=== PATIENT | male | born 1985 | race Caucasian/White ===

== ENCOUNTER 2024-02-21 19:13 | Outpatient (REF) | payer SELFPAY ==
[2024-02-21 13:06] LABS: HCT 32.4 % (40.0-50.0); HGB 10.1 g/dL (13.5-17.5); MCH 24.3 pg (27.0-33.0); MCHC 31.2 % (32.0-36.0); MCV 78 fL (80-95); MPV 10.2 fL (8.0-11.0); Platelet Count 345 10^3/uL (130-400); RBC 4.16 10^6/uL (4.36-5.78); RDW 17.1 % (11.8-14.1); RDW-SD 48.7 fL; WBC 9.15 10^3/uL (4.4-10.8)
[2024-02-21 13:25] LABS: Anion Gap 10.2 mmol/L (3-11); BUN 17 mg/dL (7-18); C-Reactive Protein 10.27 mg/dL (<or=0.5); CO2 25.8 mmol/L (21.0-32.0); CREATININE 0.7 mg/dL (0.70-1.30); Calcium 8.9 mg/dL (8.5-10.1); Chloride 103 mmol/L (98-107); Estimated GFR 118.72 (mL/min/1.73m2); Glucose 114 mg/dL (74-106); Potassium 4.5 mmol/L (3.5-5.1); Sodium 139 mmol/L (136-145)
== END 2024-02-21 19:14 | disposition home or self-care (01) ==
LOC: LBN 19:13
PROVIDERS: Visit Provider Family Medicine
DX: E87.6 Hypokalemia (principal); M86.9 Osteomyelitis, unspecified; R78.81 Bacteremia; D62 Acute posthemorrhagic anemia
CPT/HCPCS: 80048; 85027; 86140

== ENCOUNTER 2024-03-17 22:03 | Outpatient (REF) | payer MEDICAID, SELFPAY ==
[2024-03-17 21:11] LABS: Bilirubin Negative (Negative); Blood Large (Negative); Clarity Cloudy (Clear); Glucose Negative (Negative); Ketones Negative (Negative); Leukocyte Esterase Small (Negative); Nitrite Positive (Negative); pH >= 9.0 (5-8)
[2024-03-17 21:20] LABS: Bacteria Many HPF (Negative); C & S Indicated? C&S Done As Ordered; Crystals Moderate Triple Phos HPF (Negative); Epithelial Cells Moderate HPF (Negative); Mucus Moderate (Negative); RBC >50 HPF (0-2); WBC 20-50 HPF (0-5)
== END 2024-03-17 22:04 | disposition home or self-care (01) ==
LOC: LBN 22:03
PROVIDERS: PCP Family Medicine; Visit Provider Family Medicine
DX: Z87.440 Personal history of urinary (tract) infections (principal)
CPT/HCPCS: 87077; 81003; 81015; 87086; 87186

== ENCOUNTER 2024-04-04 16:51 | Emergency (ER) | payer MEDICAID, SELFPAY ==
[2024-04-04 16:48] VITALS: BP 104/60; PULSE 77; RESP 18; TEMP 36.8; O2SAT 97
--- NOTE | 2024-04-04 17:15 | DI.CT_ITS ---
Exam(s) CT RENAL COLIC WO EXAM: CT RENAL COLIC WO CLINICAL HISTORY: hematuria. TECHNIQUE: Imaging Protocol: Axial computed tomography images with coronal and sagittal reformatted images were created and reviewed. CONTRAST MATERIAL: Noncontrast COMPARISON: No exams were available for comparison FINDINGS: Lung Bases: Normal where visualized. Liver: Normal attenuation. No measurable mass. Gallbladder and biliary tract: No radiodense calculus or dilation. Pancreas: Normal density, no calcifications or inflammatory process. Spleen: Normal. Kidneys: Normal size, contour and axis. No radiodense stones or obstructive uropathy. No masses seen. Adrenal glands: No masses seen. Abdominal Aorta: Abdominal portion non-dilated. Soft tissues: Marked heterotopic calcification in the soft tissues surrounding both hips. Large soft tissue defect with some packing located posterior to the left femoral neck region. Area of scarring lateral to the right hip. Bladder: Nearly empty. Question of mild wall thickening. A Gonzalez catheter is noted with the balloon inflated in the mid penis. No evidence of stones.No visible mass. Bowel: No obstruction or bowel wall thickening. Moderate to increased quantity of stool. Reproductive: Unremarkable. Peritoneal cavity: No ascites, collection or mesenteric inflammatory response. Bones: Marked deformity of the proximal left femoral shaft large amount spurring and surrounding hete rotopic calcification. Large of posterior soft tissue wound in the lower gluteal soft tissues, poste rior to the region of the greater trochanter. No discrete abscess. No definite osteomyelitis, howev er this is not excluded. IMPRESSION: No evidence of urinary tract calculi or hydronephrosis. Question mild bladder wall thickening. No focal bladder abnormality. Gonzalez catheter balloon is inflated within the mid penile shaft. Large open soft tissue wound posterior to the left hip without evidence of abscess. Chronic appearin g deformities of the left femur. Osteomyelitis is not excluded. Marked heterotopic calcifications i n the soft tissues around both hips. RADIATION DOSE DELIVERED: Total DLP DATA REPOSITORY: All CT scans at this facility are submitted to the National Radiology Data Registry (NRDR) Dose Index Registry (DIR) with the [employer] (ACR). RADIATION OPTIMIZATION: All CT scans at this facility use at least one of these dose optimization te chniques: automated exposure control; mA and/or kV adjustment per patient size (includes targeted exa ms where dose is matched to clinical indication); or iterative reconstruction.
--- NOTE | 2024-04-04 17:17 | ED.GENADUL_ITS ---
Discharge Plan Disposition Patient Disposition: Home Condition: Stable Discharge Details Clinical Impression: Pyelonephritis Primary Care Provider: Ann Marie Tee ED Provider: Ricky Street Home Meds and New Rx's Prescriptions: New cefpodoxime 200 mg tablet 200 mg PO Q12H 12 Days Qty: 24 0RF Rx Instructions: must administer with a meal/food Discharge Instructions Instructions: Cefpodoxime, Hydromorphone, Urinary Tract Infection, Adult ED Additional Instructions: You were seen in the emergency department for your flank pain and Ortega catheter issues. As we discussed I discussed your case with our urologist Dr. Buckner, he does transurethral suprapubic catheter procedures, you can have this done here not emergently if you wish but you can also wait until you return to [place] to have it done at a facility with interventional radiology so they do not have to go through your damaged urethra. Your Ortega catheter appears to be draining and is clear of blood at this time, you do have some bacteria and are likely colonized with UTI due to your chronic catheterization. I am treating you for kidney infection with an antibiotic called cefpodoxime. We started this tonight, have also sent home with a short to go pack of hydromorphone tablets. Please return to the emergency department for increasing flank pain despite treatment, especially with fever, nausea and vomiting, urinary retention or further gross hematuria. Referrals: Ann Marie Tee [Primary Care Provider] - Discharge Data Discharge Date/Time-TO BE ENTERED AT DEPARTURE: 04/04/24 20:49 HPI General Date/Time Provider Initiated Documentation: 04/04/24 17:04 . 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 Quality described as hematuria, no radiation to fever, chills, endorses flank pain significantly, denies nausea/vomiting, denies chest pain. Severity is described as moderate. Palliating factors include nothing specific attempted. Provoking factors include nothing specific. Events leading up to the incident/Associated Symptoms: Patient is from the [facility], in the past he has had IR placement of suprapubic catheters. Patient not anticoagulated. Related Data Home Medications ?Medication ?Instructions ?Recorded ?Confirmed cefpodoxime 200 mg tablet 200 mg PO Q12H pyelonephritis 12 04/04/24 days #24 tabs Previous Rx's ?Medication ?Instructions ?Recorded cefpodoxime 200 mg tablet 200 mg PO Q12H pyelonephritis 12 04/04/24 days #24 tabs Allergies Allergy/AdvReac Type Severity Reaction Status Date / Time acetaminophen AdvReac Other (See Verified 04/04/24 16:50 Comment) General Stated Complaint: FlankPain JONNATHAN: 3 Review of Systems All systems reviewed & are unremarkable except as noted in HPI and below Exam Narrative Exam Narrative: GENERAL APPEARANCE: Well-nourished, non-toxic, awake and alert, atraumatic, no acute distress. SKIN: Warm, pink, dry, intact, without rashes/lesions/ulcerations. HEAD: Normocephalic, atraumatic, normal hair distribution for gender/age. EYES: Normal conjunctiva, no exudates on lids/lashes. ENT: Nares patent, no circumoral cyanosis, no facial swelling NECK: Supple, trachea midline, painless cervical ROM. LUNGS/CHEST: Lungs CTA bilaterally, non-labored respirations, normal A/P diameter, symmetrical expansion, no chest wall deformity HEART (CV/PV): Regular rate and rhythm without murmur, no peripheral edema, no JVD. ABDOMEN: Soft, non-distended, no guarding, bilateral CVA tenderness worse on the left, no anterior abdominal peritoneal signs. MSK: Normal ROM, no swelling/deformity to bilateral UEs or LEs, moving all extremities without weakness, no cyanosis, spine midline without tenderness, normal curvature. NEURO: Mental Status AAOx4 - alert to person, place, time, events No facial droop, no forehead involvement. Motor: No focal weakness - strength 5/5 in bilateral UEs and LEs, proximal and distal, symmetric. Sensory: sensation intact to light touch globally. Gait NT PSYCH: euthymic, cooperative, pleasant, appropriate speech Course Vital Signs Vital signs: Vital Signs Temperature 36.8 C 04/04/24 16:48 Pulse 77 04/04/24 16:48 Respiratory Rate 18 04/04/24 16:48 Blood Pressure 104/60 04/04/24 16:48 Pulse Oximetry 97 04/04/24 16:48 Temperature 36.8 C 04/04/24 16:48 Temperature Source Oral 04/04/24 16:48 Pulse 77 04/04/24 16:48 Respiratory Rate 18 04/04/24 16:48 Respiratory Effort Non-Labored 04/04/24 16:50 Blood Pressure 104/60 04/04/24 16:48 Blood Pressure Position Sitting 04/04/24 16:48 Pulse Oximetry 97 04/04/24 16:48 Oxygen Delivery Method Room Air 04/04/24 16:48 Oxygen Flow Rate 0 04/04/24 16:48 Pain Level 10 04/04/24 16:48 Medical Decision Making This dictation utilizes [id number] dictation software and may contain unedited grammatical errors. 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 Quality described as hematuria, no radiation to fever, chills, endorses flank pain significantly, denies nausea/vomiting, denies chest pain. Severity is described as moderate. Palliating factors include nothing specific attempted. Provoking factors include nothing specific. Events leading up to the incident/Associated Symptoms: Patient is from the [facility], in the past he has had IR placement of suprapubic catheters. Patients' medical history: Paraplegia, chronic UTIs, history of renal stones. Family and social history: Noncontributory. Pertinent exam findings / vital signs include bilateral CVA tenderness to percussion, benign anterior abdomen, nontoxic vitals, large chronic stage 4 pressure ulcer to L hip, managed by rehab Differential / pathologies of concern include renal stone, pyelonephritis, UTI, urinary retention or obstruction. Diagnostic studies of: -CT renal study with, CBC, CMP, lipase, UA. -UA shows greater than 50 WBCs likely E. coli but patient is likely colonized we will treat for Idris with his flank tenderness -CT renal study shows no evidence of calculi or hydronephrosis, shows his chronic pressure ulcer, shows Ortega catheter balloon inflated within the penile shaft which she confirms his frequent in his long history of Ortega cath -CBC shows no leukocytosis, CMP no actionable abnormality, normal renal function Interventions of: -Started on cefpodoxime to treat for pyelonephritis, I discussed with urology on-call Dr. Buckner, he only places transurethral suprapubic catheters, the alfred ent would prefer to wait until he returns to [place] to have an IR placement. ED Course/Assessment/Plan: 39-year-old male paraplegic patient, history of suprapubic catheter that was changed out at rehab facility states this should not been performed but they were having trouble managing it. Will he had some blood in it today and he has some flank pain I do suspect he has a UTI and I am treating for pyelonephritis, patient was agreeable with this plan, I discussed options for urology follow-up here but he prefers to wait for IR placement, he did not want to wait all weekend for any transfer to a facility with IR capable suprapubic placement at this time. Findings not consistent with sepsis, urinary obstruction, by the end of the visit the Ortega catheter is draining translucent urine. Disposition of pyelonephritis. Patient verbalized understanding of the plan and return to ED criteria and engaged in shared decision making. Medical Records Medical records reviewed: Yes I reviewed the patient's medical records. Imaging Data Radiologic Study: Attestation: I personally reviewed and interpreted this imaging study as follows: Imaging: CT Scan Radiologist's impression: EXAM: CT RENAL COLIC WO CLINICAL HISTORY: hematuria. TECHNIQUE: Imaging Protocol: Axial computed tomography images with coronal and sagittal reformatted images were created and reviewed. CONTRAST MATERIAL: Noncontrast COMPARISON: No exams were available for comparison FINDINGS: Lung Bases: Normal where visualized. Liver: Normal attenuation. No measurable mass. Gallbladder and biliary tract: No radiodense calculus or dilation. Pancreas: Normal density, no calcifications or inflammatory process. Spleen: Normal. Kidneys: Normal size, contour and axis. No radiodense stones or obstructive uropathy. No masses seen. Adrenal glands: No masses seen. Abdominal Aorta: Abdominal portion non-dilated. Soft tissues: Marked heterotopic calcification in the soft tissues surrounding both hips. Large soft tissue defect with some packing located posterior to the left femoral neck region. Area of scarring lateral to the right hip. Bladder: Nearly empty. Question of mild wall thickening. A Ortega catheter is noted with the balloon inflated in the mid penis. No evidence of stones.No visible mass. Bowel: No obstruction or bowel wall thickening. Moderate to increased quantity of stool. Reproductive: Unremarkable. Peritoneal cavity: No ascites, collection or mesenteric inflammatory response. Bones: Marked deformity of the proximal left femoral shaft large amount spurring and surrounding heterotopic calcification. Large of posterior soft tissue wound in the lower gluteal soft tissues, posterior to the region of the greater trochanter. No discrete abscess. No definite osteomyelitis, however this is not excluded. IMPRESSION: No evidence of urinary tract calculi or hydronephrosis. Question mild bladder wall thickening. No focal bladder abnormality. Ortega catheter balloon is inflated within the mid penile shaft. Large open soft tissue wound posterior to the left hip without evidence of abscess. Chronic appearing deformities of the left femur. Osteomyelitis is not excluded. Marked heterotopic calcifications in the soft tissues around both hips. Lab Data Lab results reviewed: Yes I reviewed the patient's lab results. Labs: 04/04/24 18:35 Urine - Reflex from Ua Urine Culture - Preliminary Gram Negative Evan Laboratory Tests Range/Units 04/04/24 04/04/24 18:16 18:35 WBC (4.4-10.8) 10^3/uL 9.24 RBC (4.36-5.78) 10^6/uL 4.90 Hgb (13.5-17.5) g/dL 11.7 L Hct (40.0-50.0) % 37.7 L MCV (80-95) fL 77 L MCH (27.0-33.0) pg 23.9 L MCHC (32.0-36.0) % 31.0 L RDW (11.8-14.1) % 18.1 H Plt Count (130-400) 10^3/uL 353 MPV (8.0-11.0) fL 9.3 Immature Gran % % 0.2 Neutrophils % % 60.7 Lymphocytes % % 30.3 Monocytes % % 6.6 Eosinophils % % 1.6 Basophils % % 0.6 Nucleated RBC % (0.0-0.3) % 0.0 Absolute Neutrophils (1.2-6.7) 10^3/uL 5.60 Absolute Lymphocytes (1.2-3.4) 10^3/uL 2.80 Absolute Monocytes (0.1-0.8) 10^3/uL 0.61 Absolute Eosinophils (0.0-0.7) 10^3/uL 0.15 Absolute Basophils (0.0-0.2) 10^3/uL 0.06 Sodium (136-145) mmol/L 139 Potassium (3.5-5.1) mmol/L 4.2 Chloride (98-107) mmol/L 103 Carbon Dioxide (21.0-32.0) mmol/L 26.7 Anion Gap (3-11) mmol/L 9.3 BUN (7-18) mg/dL 19 H Creatinine (0.70-1.30) mg/dL 0.9 Est GFR (CKD-EPI 2020) (mL/min/1.73m2) 110.04 Glucose (74-106) mg/dL 88 Calcium (8.5-10.1) mg/dL 8.9 Total Bilirubin (0.2-1.0) mg/dL 0.23 AST (15-37) U/L 19 ALT (16-63) U/L 21 Alkaline Phosphatase (46-116) U/L 132 H Total Protein (6.4-8.2) g/dL 9.0 H Albumin (3.4-5.0) g/dL 2.9 L Lipase (<78) U/L 37 Urine Color (Yellow) Yellow Urine Clarity (Clear) Sl Cloudy Urine pH (5-8) 7.0 Ur Specific Folcroft (1.005-1.025) >= 1.030 H Urine Protein (Neg-Trace) mg/dL 100 H Urine Ketones (Negative) mg/dL Negative Urine Blood (Negative) Trace-intact H Urine Nitrite (Negative) Positive H Urine Bilirubin (Negative) Negative Urine Urobilinogen (Up to 0.2) mg/dL 0.2 Ur Leukocyte Esterase (Negative) Moderate H Urine RBC (0-2) HPF 3-5 H Urine WBC (0-5) HPF >50 H Ur Epithelial Cells (Negative) HPF Rare Urine Crystals (Negative) HPF Negative Urine Bacteria (Negative) HPF Moderate Urine Casts (Negative) LPF Negative Urine Mucus (Negative) Negative Ur Culture Indicated? Yes Urine Glucose (Negative) mg/dL Negative Quality:SDOH Health Related Social Needs: No Data to Display PFSH All Active Problems (Updated 04/04/24 @ 19:34 by RICHARD Sosa) Pyelonephritis (Acute) Social History Smoking/Tobacco Use Status: Never Smoking risk assessment performed?: Yes Alcohol Intake: never Drug use: Never Substance use type: does not use Housing: assisted living facility
[2024-04-04 18:21] LABS: Abs Immature Grans 0.02 10^3/uL (0.0-0.06); Absolute Basophil Count 0.06 10^3/uL (0.0-0.2); Absolute Eosinophil Count 0.15 10^3/uL (0.0-0.7); Absolute Monocyte Count 0.61 10^3/uL (0.1-0.8); Basophils % 0.6 %; Eosinophils % 1.6 %; HCT 37.7 % (40.0-50.0); HGB 11.7 g/dL (13.5-17.5); Immature Grans % 0.2 %; Lymphocytes % 30.3 %; MCH 23.9 pg (27.0-33.0); MCV 77 fL (80-95); MPV 9.3 fL (8.0-11.0); Monocytes % 6.6 %; Neutrophils % 60.7 %; Platelet Count 353 10^3/uL (130-400); RDW 18.1 % (11.8-14.1); RDW-SD 49.8 fL; WBC 9.24 10^3/uL (4.4-10.8)
[2024-04-04] MEDS: MORPHine 4 MG/ML SYR IVP (18:23)
[2024-04-04 18:36] LABS: ALT 21 U/L (16-63); AST 19 U/L (15-37); Albumin 2.9 g/dL (3.4-5.0); Alkaline Phosphatase 132 U/L (46-116); Anion Gap 9.3 mmol/L (3-11); BUN 19 mg/dL (7-18); Bilirubin, Total 0.23 mg/dL (0.2-1.0); CO2 26.7 mmol/L (21.0-32.0); CREATININE 0.9 mg/dL (0.70-1.30); Chloride 103 mmol/L (98-107); Estimated GFR 110.04 (mL/min/1.73m2); Glucose 88 mg/dL (74-106); Lipase 37 U/L (<78); Potassium 4.2 mmol/L (3.5-5.1); Sodium 139 mmol/L (136-145)
[2024-04-04 18:44] LABS: Calcium 8.9 mg/dL (8.5-10.1)
[2024-04-04 18:48] LABS: Bilirubin Negative (Negative); Blood Trace-intact (Negative); Clarity Sl Cloudy (Clear); Glucose Negative (Negative); Ketones Negative (Negative); Leukocyte Esterase Moderate (Negative); Nitrite Positive (Negative); Specific Gravity >= 1.030 (1.005-1.025); Urobilinogen 0.2 mg/dL (Up to 0.2)
[2024-04-04 18:51] LABS: Bacteria Moderate HPF (Negative); C & S Indicated? Yes; Casts Negative LPF (Negative); Crystals Negative HPF (Negative); Epithelial Cells Rare HPF (Negative); Mucus Negative (Negative); WBC >50 HPF (0-5)
--- NOTE | 2024-04-04 19:19 | NUR.NOTE ---
Nursing Note: Received report from Bella Weinstein RN and assumed care of pt at 1900.
[2024-04-04] MEDS: Cefpodoxime 200 MG TAB PO (19:44)
[2024-04-04] MEDS: HYDROmorphone 2 MG/ML SYR 0.5 MG IVP (19:46)
[2024-04-04] MEDS: Cefpodoxime 200 MG TAB 800 MG PO (20:20)
[2024-04-04 20:23] VITALS: BP 119/66; PULSE 73; RESP 16; TEMP 36.7; O2SAT 99
[2024-04-04 20:24] VITALS: BP 119/66; PULSE 73; RESP 16; TEMP 36.7; O2SAT 99
[2024-04-04] MEDS: HYDROmorphone 2 MG TAB 10 MG PO (20:37)
== END 2024-04-04 20:49 | disposition home or self-care (01) ==
PROVIDERS: Emergency Provider Physician Assistant; PCP Family Medicine
DX: N10 Acute pyelonephritis (principal)
CPT/HCPCS: 36415; 80053; 83690; 87077; 96374; 96375; 99284; 74176; 81003; 81015; 85025; 87086; 87186; J1171; J2270

== ENCOUNTER 2024-06-30 14:51 | Inpatient (IN) | payer MEDICAID, SELFPAY ==
[2024-06-30] VITALS (16 sets, daily range): BP systolic 110–137; BP diastolic 67–85; PULSE 95–121; RESP 16–18; TEMP 36.7–37.4; O2SAT 93–100
[2024-06-30 15:58] LABS: Abs Immature Grans 0.01 10^3/uL (0.0-0.06); Absolute Basophil Count 0.05 10^3/uL (0.0-0.2); Absolute Eosinophil Count 0.23 10^3/uL (0.0-0.7); Absolute Lymphocyte Count 1.76 10^3/uL (1.2-3.4); Absolute Monocyte Count 0.48 10^3/uL (0.1-0.8); Absolute Neutrophil Count 4.36 10^3/uL (1.2-6.7); Basophils % 0.7 %; Eosinophils % 3.3 %; HCT 35.2 % (40.0-50.0); HGB 11.1 g/dL (13.5-17.5); Immature Grans % 0.1 %; Lymphocytes % 25.5 %; MCH 24.3 pg (27.0-33.0); MCHC 31.5 % (32.0-36.0); MCV 77 fL (80-95); MPV 9.8 fL (8.0-11.0); Neutrophils % 63.4 %; Platelet Count 297 10^3/uL (130-400); RBC 4.56 10^6/uL (4.36-5.78); RDW 15.5 % (11.8-14.1); RDW-SD 43.2 fL; WBC 6.89 10^3/uL (4.4-10.8)
[2024-06-30 16:02] LABS: ESR 103 mm/hr (0-15)
[2024-06-30] MEDS: MORPHine 10 MG/ML VIAL 6 MG IVP ×2 (16:06→19:17)
[2024-06-30 16:19] LABS: ALT 22 U/L (16-63); AST 18 U/L (15-37); Albumin 2.1 g/dL (3.4-5.0); Alkaline Phosphatase 105 U/L (46-116); Anion Gap 7.3 mmol/L (3-11); BUN 13 mg/dL (7-18); Bilirubin, Total 0.2 mg/dL (0.2-1.0); C-Reactive Protein 12.39 mg/dL (<or=0.5); CO2 30.7 mmol/L (21.0-32.0); CREATININE 0.7 mg/dL (0.70-1.30); Calcium 8.9 mg/dL (8.5-10.1); Chloride 101 mmol/L (98-107); Estimated GFR 118.72 (mL/min/1.73m2); Glucose 119 mg/dL (74-106); Potassium 3.9 mmol/L (3.5-5.1); Sodium 139 mmol/L (136-145); Total Protein 8.4 g/dL (6.4-8.2)
--- NOTE | 2024-06-30 17:20 | DI.CT_ITS ---
Exam(s) CT PELVIC W EXAM: CT PELVIC W CLINICAL HISTORY: left buttock wound. TECHNIQUE: Imaging Protocol: Axial computed tomography images with coronal and sagittal reformatted images were created and reviewed CONTRAST MATERIAL: Intravenous: Omnipaque 100cc Oral: None COMPARISON: No exams were available for comparison FINDINGS: PELVIS: OSSEOUS:Chronic fracture deformities of the pelvis and hips. No obvious acute fractures. SOFT TISSUES there is a deep ulcer tract on the lateral aspect of the left hip region with a tract ex tending inward from the lateral skin surface at this level into the deep tissues surrounding the left hip and this appears to be in communication with the ipsilateral left hip joint. The left hip is pa rtially dislocated by fluid or what is greater than fluid density in and around the hip joint space. There is significant erosion of the ipsilateral left superior pubic ramus, this best visualized on t he coronal reconstructed images.. There are multiple bone fragments which are probably dystrophic. There is a healed left intertrochanteric fracture. Higher up on the left side x there is another lateral tract from the skin towards the region of the g reater trochanter. On the opposite-right side there is a tract extending from the skin surface in words towards the grea ter trochanter of the right hip. The right hip joint space exhibits degenerative change but no abnor mal widening nor subluxation, as is evident on the left side. ANTERIOR ABDOMINAL WALL/GI:No evidence of bowel obstruction. No significant sigmoid diverticular dis ease. LYMPH NODES: There are shoddy left groin lymph nodes. REPRODUCTIVE: Prostate size not enlarged. Seminal vesicles unremarkable. Left testicle appears to b e within the left inguinal canal. URINARY BLADDER: There is Gonzalez catheter in the urinary bladder and the bladder is collapsed around t he Gonzalez. IMPRESSION: 1. Bilateral decubitus ulcers. However, the largest on the left side and extends from the skin surfa ce in to the left hip joint space and the left hip joint space is widened and with resultant subluxat ion of the left hip joint. Appearance of the bones of the left hip reflect chronic trauma and dystro phic calcification and possible chronic osteomyelitis. Suspect also that there may be ongoing infect ious process in the left hip joint space. Report called by myself to ER 06/30/2024 at 5:35 p.m. RADIATION DOSE DELIVERED: 639.78mGy.cm Total DLP DATA REPOSITORY: All CT scans at this facility are submitted to the National Radiology Data Registry (NRDR) Dose Index Registry (DIR) with the [employer] (ACR). RADIATION OPTIMIZATION: All CT scans at this facility use at least one of these dose optimization te chniques: automated exposure control; mA and/or kV adjustment per patient size (includes targeted exa ms where dose is matched to clinical indication); or iterative reconstruction.
[2024-06-30] MEDS: Normal Saline - Diluent 50 ML VIAL IJ (17:21)
[2024-06-30] MEDS: Omnipaque 350 MG/ML 500 ML BTL-Imaging package 100 ML IJ (17:21)
--- NOTE | 2024-06-30 17:53 | NUR.NOTE ---
Nursing Note: Pressure wound to left buttock 6cm deep from center tunnel @11 5.5cm 3 oclock 4.8cm 6oclock 3.2cm 9oclock 3cm approx 75% yellow slough with red beefy tissue surrounding wound filled with 2 pieces of wet kerlix dressing, barrier cream applied surround wound and skin prep applied where optiview dressing touches
--- NOTE | 2024-06-30 21:46 | ED.GENADUL_ITS ---
Discharge Plan Disposition Patient Disposition: Admit to [facility] Condition: Fair Discharge Details Chief Complaint: Cellulitis Clinical Impression: Paraplegia, Decubitus ulcer of sacral region, stage 4 Primary Care Provider: Ann Marie Tee ED Provider: Gilberto Ohara Home Meds and New Rx's Prescriptions: No Action hydromorphone [Dilaudid] 2 mg tablet 2 mg PO TID bisacodyl [Laxative (bisacodyl)] 10 mg suppository 10 mg MO DAILY PRN Drizalma Sprinkle 30 mg capsule, delayed rel sprinkle 30 mg PO DAILY gabapentin 300 mg capsule 900 mg PO TID ibuprofen [IBU] 600 mg tablet 600 mg PO Q6H magnesium hydroxide [Milk of Magnesia] 400 mg/5 mL suspension 30 ml PO DAILY PRN polyethylene glycol 3350 [Miralax] 17 gram powder in packet 17 g PO DAILY multivitamin [Daily Multi-Vitamin] Tablet 1 tab PO DAILY ondansetron 4 mg tablet,disintegrating 4 mg PO Q6H pantoprazole 20 mg tablet,delayed release (DR/EC) 20 mg PO BID potassium chloride 10 mEq capsule, extended release 20 meq PO DAILY quetiapine 200 mg tablet 200 mg PO QHS Saline Laxative Enema 1 dose MO ONCE calcium carbonate 500 mg calcium (1,250 mg) tablet,chewable 1,000 mg PO Q2H PRN ascorbic acid (vitamin C) [Vitamin C] 250 mg tablet 500 mg PO DAILY HPI General Date/Time Provider Initiated Documentation: 06/30/24 15:00 . Limitations to Documentation: no limitations . Information obtained by: patient . HPI Narrative: 39-year-old gentleman with past medical history of paraplegia, sacral decubitus ulcer presents for evaluation of worsening wound. Patient states [facility] and that this longstanding wound has been getting worse particularly over the last 2 months. He reports that now he is having pain in the area and he does not feel that they are doing adequate woun care. He has not had any fever or chills. He denies any other symptoms. He does have sensation in the area of the wound, but has no motor function. Related Data Home Medications ?Medication ?Instructions ?Recorded ?Confirmed Saline Laxative Enema 1 dose MO ONCE 06/30/24 06/30/24 ascorbic acid (vitamin C) 250 mg 500 mg PO DAILY 06/30/24 06/30/24 tablet (Vitamin C) bisacodyl 10 mg rectal suppository 10 mg MO DAILY PRN 06/30/24 06/30/24 (Laxative (bisacodyl)) calcium carbonate 1,000 mg PO Q2H PRN 06/30/24 06/30/24 duloxetine 30 mg capsule,delayed 30 mg PO DAILY 06/30/24 06/30/24 release sprinkle (Drizalma Sprinkle) gabapentin 300 mg capsule 900 mg PO TID 06/30/24 06/30/24 hydromorphone 2 mg tablet 2 mg PO TID 06/30/24 06/30/24 (Dilaudid) ibuprofen 600 mg tablet (IBU) 600 mg PO Q6H 06/30/24 06/30/24 magnesium hydroxide 400 mg/5 mL 30 ml PO DAILY PRN 06/30/24 06/30/24 oral suspension (Milk of Magnesia) multivitamin (Daily Multi-Vitamin 1 tab PO DAILY 06/30/24 06/30/24 tablet) ondansetron 4 mg disintegrating 4 mg PO Q6H 06/30/24 06/30/24 tablet pantoprazole 20 mg tablet,delayed 20 mg PO BID 06/30/24 06/30/24 release polyethylene glycol 3350 17 gram 17 g PO DAILY 06/30/24 06/30/24 oral powder packet (Miralax) potassium chloride 10 mEq 20 meq PO DAILY 06/30/24 06/30/24 capsule,extended release quetiapine 200 mg tablet 200 mg PO QHS 06/30/24 06/30/24 Allergies Allergy/AdvReac Type Severity Reaction Status Date / Time shellfish derived Allergy Severe Anaphylaxis Verified 06/30/24 15:24 lobster Allergy Unknown Unknown Verified 06/30/24 17:48 shrimp Allergy Unknown Unknown Verified 06/30/24 17:48 acetaminophen AdvReac Other (See Verified 06/30/24 15:24 Comment) General Stated Complaint: Cellulitis JONNATHAN: 3 Exam Narrative Exam Narrative: Review of Systems: All systems reviewed & are unremarkable except as noted in HPI and below Obese, no acute distress NCAT RRR Unlabored respiratory effort Nondistended abdomen Large sacral wound noted, no foul smell Gonzalez catheter in place Paraplegia baseline no acute neurodeficits Course Vital Signs Vital signs: Vital Signs Temperature 37.4 C 06/30/24 14:53 Pulse 116 H 06/30/24 14:53 Respiratory Rate 18 06/30/24 14:53 Blood Pressure 137/69 06/30/24 14:53 Temperature 36.7 C 06/30/24 21:35 Temperature Source Skin 06/30/24 21:35 Pulse 103 H 06/30/24 21:35 Respiratory Rate 16 06/30/24 21:35 Blood Pressure 122/72 06/30/24 21:35 Blood Pressure Mean 94 06/30/24 18:33 Pulse Oximetry 97 06/30/24 21:35 Oxygen Delivery Method Room Air 06/30/24 21:35 Oxygen Flow Rate 0 06/30/24 21:35 Pain Level 8 06/30/24 17:51 Lab/Test Results Lab/Test Results: Laboratory Tests Range/Units 06/30/24 15:52 WBC (4.4-10.8) 10^3/uL 6.89 RBC (4.36-5.78) 10^6/uL 4.56 Hgb (13.5-17.5) g/dL 11.1 L Hct (40.0-50.0) % 35.2 L MCV (80-95) fL 77 L MCH (27.0-33.0) pg 24.3 L MCHC (32.0-36.0) % 31.5 L RDW (11.8-14.1) % 15.5 H Plt Count (130-400) 10^3/uL 297 MPV (8.0-11.0) fL 9.8 Immature Gran % % 0.1 Neutrophils % % 63.4 Lymphocytes % % 25.5 Monocytes % % 7.0 Eosinophils % % 3.3 Basophils % % 0.7 Nucleated RBC % (0.0-0.3) % 0.0 Absolute Neutrophils (1.2-6.7) 10^3/uL 4.36 Absolute Lymphocytes (1.2-3.4) 10^3/uL 1.76 Absolute Monocytes (0.1-0.8) 10^3/uL 0.48 Absolute Eosinophils (0.0-0.7) 10^3/uL 0.23 Absolute Basophils (0.0-0.2) 10^3/uL 0.05 ESR (0-15) mm/hr 103 H Sodium (136-145) mmol/L 139 Potassium (3.5-5.1) mmol/L 3.9 Chloride (98-107) mmol/L 101 Carbon Dioxide (21.0-32.0) mmol/L 30.7 Anion Gap (3-11) mmol/L 7.3 BUN (7-18) mg/dL 13 Creatinine (0.70-1.30) mg/dL 0.7 Est GFR (CKD-EPI 2020) (mL/min/1.73m2) 118.72 Glucose (74-106) mg/dL 119 H Calcium (8.5-10.1) mg/dL 8.9 Total Bilirubin (0.2-1.0) mg/dL 0.2 AST (15-37) U/L 18 ALT (16-63) U/L 22 Alkaline Phosphatase (46-116) U/L 105 C-Reactive Protein (<or=0.5) mg/dL 12.39 H Total Protein (6.4-8.2) g/dL 8.4 H Albumin (3.4-5.0) g/dL 2.1 L Medical Decision Making Emergent evaluation of sacral decubitus wound paraplegic patient. Wound is chronic. Patient is not having any signs or symptoms consistent with self sepsis or overwhelming infection. No fever. The wound itself is extensive however there does not appear to be overt signs of overlying infection. The wound was cleaned and local wound care done by nursing staff. Lab work including inflammatory markers were obtained. There is no leukocytosis. Mild anemia which is stable with prior values. No electrolyte derangement. Low albumin level at 2.1, CRP elevated at 12 and ESR at 103 and negative of mild inflammatory response. CT scan of the pelvis was obtained which does demonstrate significant abnormality. There is a large decubitus ulcer particularly on the left side that extends from the surface to the hip joint. There is widening of the joint and possible infection within the joint. Compared with prior, this does appear to be worse. Images were sent to [facility] and consultation with orthopedics was performed. They have reviewed the imaging and are recommending an MRI with and without contrast of the pelvis and proximal femur. They recommend general surgery consult for possible debridement. The day recommend with holding antibiotics until the MRI to determine most appropriate treatment regimen. Currently unable to transfer due to their capacity. Discussed with the hospitalist and will admit to this facility for aggressive wound care, GEN surge consultation MRI in the morning. In reconsultation with orthopedics as needed. Quality:SDOH Health Related Social Needs: 2 No Data to Display PFSH All Active Problems (Updated 06/30/24 @ 21:54 by Gilberto Ohara MD) Decubitus ulcer of sacral region, stage 4 (Acute) History of UTI (Acute) Essential hypertension (Acute) Insomnia (Acute) Chronic viral hepatitis C (Acute) Pressure ulcer of left hip (Acute) Vitamin D deficiency (Acute) Weakness (Acute) Pressure ulcer of right hip (Acute) Acute posthemorrhagic anemia (Acute) Nicotine dependence (Acute) Psychoactive substance abuse (Acute) Opioid dependence (Acute) GERD with apnea without esophagitis (Acute) Depression (Chronic) Chronic pain (Chronic) PTSD (post-traumatic stress disorder) (Acute) Neuromuscular dysfunction of bladder (Acute) Morbid obesity (Acute) Bacteremia (Acute) Osteomyelitis (Acute) Asthma (Chronic) Paraplegia (Acute) Social History Smoking/Tobacco Use Status: Never Smoking risk assessment performed?: Yes Alcohol Intake: never Drug use: Never Substance use type: does not use Housing: assisted living facility
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
[2024-06-30] MEDS: HYDROmorphone 2 MG TAB PO (23:38)
[2024-06-30] MEDS: Gabapentin 300 MG CAP 900 MG PO (23:39)
[2024-06-30] MEDS: QUEtiapine 100 MG TAB 200 MG PO (23:39)
[2024-07-01 01:30] LABS: Ferritin 168 ng/mL (26-388)
--- NOTE | 2024-07-01 01:42 | W.PC.ACHO ---
Registration Status: Primary Language: Preferred Language: ED Information & Data Chief Complaint Cellulitis 06/30/24 21:54 Triage Note chronic wound to left 06/30/24 14:53 buttock, new tunneling, increased pain. Medical / Surgical History (Last Reviewed 07/01/24 @ 00:25 by Rajesh Rees) Spinal epidural abscess (Last Reviewed 07/01/24 @ 00:25 by Rajesh Rees) S/P spinal surgery Most Recent Vital Signs Temperature 36.7 C 06/30/24 21:35 Temperature Source Skin 06/30/24 21:35 Pulse 103 H 06/30/24 21:35 Respiratory Rate 16 06/30/24 21:35 Blood Pressure 122/72 06/30/24 21:35 Blood Pressure Mean 94 06/30/24 18:33 Pulse Oximetry 97 06/30/24 21:35 Oxygen Delivery Method Room Air 06/30/24 21:35 Oxygen Flow Rate 0 06/30/24 21:35 Pain Level 8 06/30/24 17:51 Allergies shellfish derived Allergy (Severe, Verified 06/30/24 15:24) Anaphylaxis lobster Allergy (Unknown, Verified 06/30/24 17:48) Unknown shrimp Allergy (Unknown, Verified 06/30/24 17:48) Unknown acetaminophen Adverse Reaction (Verified 06/30/24 15:24) Other (See Comment) pt was advised not to take d/t liver function Precautions Isolation Standard precaution 06/30/24 17:51 Active Medications Generic Name Dose Route Start Last Admin Trade Name Freq PRN Reason Stop Dose Admin Iohexol 100 ml 06/30/24 17:30 06/30/24 17:21 Omnipaque 350 Mg/Ml 500 Ml Btl-Imaging Package IJ 07/30/24 23:59 500 ml DIRECTED LAKISHA Administration Quetiapine Fumarate 200 mg 06/30/24 23:15 06/30/24 23:39 Quetiapine 100 Mg Tab PO 200 mg HS LAKISHA Administration Sodium Chloride 50 ml 06/30/24 17:30 06/30/24 17:21 Normal Saline - Diluent 50 Ml Vial IJ 50 ml .FOR DI USE LAKISHA Administration IV IV Catheter Type [Right Upper Saline Lock arm] IV Catheter Gauge [Right Upper 20 arm] Diet Orders Category Date Time Status Regular/Normal [DIET] Nutrition 07/01/24 Breakfast Active Diagnostics 06/30/24 Range/Units 15:52 WBC 6.89 (4.4-10.8) 10^3/uL RBC 4.56 (4.36-5.78) 10^6/uL Hgb 11.1 L (13.5-17.5) g/dL Hct 35.2 L (40.0-50.0) % MCV 77 L (80-95) fL MCH 24.3 L (27.0-33.0) pg MCHC 31.5 L (32.0-36.0) % RDW 15.5 H (11.8-14.1) % Plt Count 297 (130-400) 10^3/uL MPV 9.8 (8.0-11.0) fL Immature Gran % 0.1 % Neutrophils % 63.4 % Lymphocytes % 25.5 % Monocytes % 7.0 % Eosinophils % 3.3 % Basophils % 0.7 % Nucleated RBC % 0.0 (0.0-0.3) % Absolute Neutrophils 4.36 (1.2-6.7) 10^3/uL Absolute Lymphocytes 1.76 (1.2-3.4) 10^3/uL Absolute Monocytes 0.48 (0.1-0.8) 10^3/uL Absolute Eosinophils 0.23 (0.0-0.7) 10^3/uL Absolute Basophils 0.05 (0.0-0.2) 10^3/uL ESR 103 H (0-15) mm/hr Sodium 139 (136-145) mmol/L Potassium 3.9 (3.5-5.1) mmol/L Chloride 101 (98-107) mmol/L Carbon Dioxide 30.7 (21.0-32.0) mmol/L Anion Gap 7.3 (3-11) mmol/L BUN 13 (7-18) mg/dL Creatinine 0.7 (0.70-1.30) mg/dL Est GFR (CKD-EPI 2020) 118.72 (mL/min/1.73m2) Glucose 119 H (74-106) mg/dL Calcium 8.9 (8.5-10.1) mg/dL Ferritin Pending Total Bilirubin 0.2 (0.2-1.0) mg/dL AST 18 (15-37) U/L ALT 22 (16-63) U/L Alkaline Phosphatase 105 (46-116) U/L C-Reactive Protein 12.39 H (<or=0.5) mg/dL Total Protein 8.4 H (6.4-8.2) g/dL Albumin 2.1 L (3.4-5.0) g/dL Intake and Output - 24 Hour Total 06/30/24 14:48 thru 06/30/24 15:54 Intake Total 10 Balance 10 Weight 137.9 kg Intake: IV 10 Falls Risk Assessment History of Falls Previous History 06/30/24 17:51 Contributing Factors Impairments,Incontinence 06/30/24 17:51 Ambulatory Aids Uses ambulatory device + 06/30/24 17:51 Tubes/Lines With any additional score 06/30/24 17:51 Gait Evaluation W/any additional score 06/30/24 17:51 Cognition No cognitive impairment 06/30/24 17:51 Fall Total Score 91 06/30/24 17:51 Level of Risk Maximum Risk 06/30/24 17:51 Problems (Last Reviewed 07/01/24 @ 00:25 by Rajesh Rees) DVT prophylaxis (Acute) Anemia (Chronic) Decubitus ulcer of sacral region, stage 4 (Acute) Pressure ulcer of left hip (Acute) GERD with apnea without esophagitis (Acute) Depression (Chronic) Chronic pain (Chronic) Paraplegia (Acute) Notes 06/30/24 17:53 Nursing Notes by Marni Mathur Nursing Note: Pressure wound to left buttock 6cm deep from center tunnel @11 5.5cm 3 oclock 4.8cm 6oclock 3.2cm 9oclock 3cm approx 75% yellow slough with red beefy tissue surrounding wound filled with 2 pieces of wet kerlix dressing, barrier cream applied surround wound and skin prep applied where optiview dressing touches Initialized on 06/30/24 17:53 - END OF NOTE v v v v v v v v v Sending and/or Receiving Nurses: Please use comment section below to note any information pertinent to the patient hand-off not included above. Information / Comments: Report received from: received report from Nathan. AAO x 4 39 year old male who [facility] with a stage 4 wound to left hip. was given his HS medications in the ER, surgical and wound care consult ordered. Pt is AAO x 4. reports 8/10 pain in left hip. CT scan completed, MRI to be done 07/01. [facility] [place]o consulted. patient to be transferred if left hip is + for osteo. surgical team here at [facility] joseph will debride the wound. # 18 in LAC, saline locked.
[2024-07-01 02:17] VITALS: BP 125/85; PULSE 91; RESP 17; TEMP 37; O2SAT 91
--- NOTE | 2024-07-01 04:13 | NUR.NOTE ---
wound care note from the ER, see below Nursing Note: Pressure wound to left buttock 6cm deep from center tunnel @11 5.5cm 3 oclock 4.8cm 6oclock 3.2cm 9oclock 3cm approx 75% yellow slough with red beefy tissue surrounding wound filled with 2 pieces of wet kerlix dressing, barrier cream applied surround wound and skin prep applied where optiview dressing touches ursing Note:
[2024-07-01 07:49] VITALS: BP 109/63; PULSE 102; RESP 18; TEMP 36.5; O2SAT 94
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
[2024-07-01 08:58] LABS: Lactate 0.7 mmol/L (<or=2.0)
[2024-07-01 08:59] LABS: Abs Immature Grans 0.01 10^3/uL (0.0-0.06); Absolute Basophil Count 0.05 10^3/uL (0.0-0.2); Absolute Eosinophil Count 0.28 10^3/uL (0.0-0.7); Absolute Lymphocyte Count 2.04 10^3/uL (1.2-3.4); Absolute Monocyte Count 0.65 10^3/uL (0.1-0.8); Absolute Neutrophil Count 4.43 10^3/uL (1.2-6.7); Basophils % 0.7 %; Eosinophils % 3.8 %; HCT 33.5 % (40.0-50.0); HGB 10.7 g/dL (13.5-17.5); Immature Grans % 0.1 %; Lymphocytes % 27.3 %; MCH 24.3 pg (27.0-33.0); MCHC 31.9 % (32.0-36.0); MCV 76 fL (80-95); MPV 9.5 fL (8.0-11.0); Monocytes % 8.7 %; Neutrophils % 59.4 %; Platelet Count 269 10^3/uL (130-400); RDW 15.5 % (11.8-14.1); RDW-SD 42.9 fL; WBC 7.46 10^3/uL (4.4-10.8)
[2024-07-01] MEDS: DULoxetine 30 MG CAP PO (09:00)
[2024-07-01] MEDS: Multivitamin TAB 1 TAB PO (09:01)
[2024-07-01] MEDS: HYDROmorphone 2 MG TAB PO ×4 (09:01→19:27)
[2024-07-01] MEDS: Potassium Chloride 20 MEQ TABCR PO (09:01)
[2024-07-01] MEDS: Gabapentin 300 MG CAP 900 MG PO ×3 (09:01→19:27)
[2024-07-01] MEDS: Ascorbic Acid 500 MG TAB PO (09:01)
[2024-07-01] MEDS: Pantoprazole 20 MG TABCR PO (09:01)
[2024-07-01] MEDS: Normal Saline Flush 10 ML SYR IVP ×2 (09:03→19:28)
[2024-07-01 09:14] LABS: Magnesium 1.7 mg/dL
[2024-07-01 09:16] LABS: ALT 19 U/L (16-63); AST 16 U/L (15-37); Albumin 1.9 g/dL (3.4-5.0); Alkaline Phosphatase 97 U/L (46-116); Anion Gap 9.8 mmol/L (3-11); BUN 11 mg/dL (7-18); Bilirubin, Total 0.4 mg/dL (0.2-1.0); C-Reactive Protein 12.33 mg/dL (<or=0.5); CO2 27.2 mmol/L (21.0-32.0); CREATININE 0.7 mg/dL (0.70-1.30); Calcium 8.8 mg/dL (8.5-10.1); Chloride 100 mmol/L (98-107); Estimated GFR 118.72 (mL/min/1.73m2); Glucose 118 mg/dL (74-106); Potassium 3.6 mmol/L (3.5-5.1); Sodium 137 mmol/L (136-145); Total Protein 7.7 g/dL (6.4-8.2)
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
[2024-07-01] MEDS: LORazepam 1 MG TAB 2 MG PO (10:59)
[2024-07-01] MEDS: QUEtiapine 100 MG TAB 200 MG PO (19:27)
[2024-07-01 20:51] VITALS: BP 141/86; PULSE 102; RESP 20; TEMP 36.5; O2SAT 91
--- NOTE | 2024-07-02 | DI.RAD_ITS ---
Exam(s) XR HIP PELVIS ADULT BL EXAM: XR HIP PELVIS ADULT BL CLINICAL HISTORY: Osteomyelitis - ortho request. TECHNIQUE: 2D digital imaging was performed. COMPARISON: No exams were available for comparison FINDINGS: 3 views There are chronic posttraumatic changes in both sides of the pelvis. On the left side there is a large decubitus ulcer extending inwards from the lateral gluteus region t o the left hip joint, reaching the hip joint at the level the lateral aspect of the greater trochante r. There is subluxation of the left femoral head from the acetabulum. There is also some abnormal a ppearance of the ipsilateral left acetabulum. Chronic dystrophic bone in and around the left hip is noted. No obvious gas in the soft tissues. IMPRESSION: As above. However, please note that MRI scan today reveals findings highly suspicious for osteomyeli tis of the left hip and hemipelvis and septic arthritis of the left hip. See that separate MRI repor t. The left femoral head exhibits subluxation which was not evident on a prior CT scan of March 24. This subluxation is most probably related to the significant amount of fluid within the left hi p joint space which is most probably infected/septic arthritis. DATA REPOSITORY: RADIATION DOSE DELIVERED:
--- NOTE | 2024-07-02 07:00 | DI.MRI_ITS ---
Exam(s) MR PELVIS WO/W EXAM: MR PELVIS WO/W CLINICAL HISTORY: deep ulceration, osteo? COMPARISON: CT CT RENAL COLIC WO from 04/04/[address] PELVIC W from 06/30/2024 FINDINGS: SOFT TISSUES: There is a laterally located deep decubitus ulcer and channel on the left side which ex tends inwards to the previously traumatized left hip/left hemipelvis where there is significant signa l abnormality and enhancement within the left hip joint space as well as the left hemipelvis musculat ure extending all the way up to the iliac crest. The gluteus minimus and medius muscles are signific antly involved throughout their length. There is some signal abnormality in the most lateral aspect of the ipsilateral gluteus shannan muscle. There is atrophy of the intrapelvic left iliacus muscle but no significant myositis signal within thi s intrapelvic musculature. There is, however, signal abnormality with in the left obturator internus muscle just medial to the affected left acetabulum. OSSEOUS: There is subluxation of the previously traumatized and partially fragmented left hip joint. There is confluent hypointense signal on noncontrast T1 weighted images within the left femoral head and neck as well as within the left acetabulum and superior pubic ramus. There is corresponding stir bright signal and abnormal enhancement these osseous structures. IMPRESSION: Large left-sided decubitus ulcer channel extending to the level of the left hip with evidence of infe cted left hip joint and osteomyelitis of the femoral head, neck and inter trochanteric region of the left hip as well as osteomyelitis of the left hip acetabulum and significant part of the superior lef t pubic ramus. Although there is a lesser amount of involvement of the inferior pubic ramus, there a ppears to be involvement of the ipsilateral ischial tuberosity region. In addition to septic involvement of the remaining hip joint there is also abnormal myositis signal t hroughout the entire ipsilateral left gluteus minimus and medius musculature extending all the way up to the iliac crest. There is also similar signal abnormality in the lateral 3rd of the ipsilateral gluteus shannan muscle. There is also significant involvement of the left obturator internus muscle which is just medial to the affected left acetabulum. The there is subluxation of the left femoral head noted which is significantly more than was evident on CT scan of 04/04/2024 and is most probably related to the amount of infection with in the left hip joint space. Incidentally noted is osteoarthritic degenerative change in the opposite-right hip but no evidence of osteomyelitis in the right hip. DATA REPOSITORY:
[2024-07-02] MEDS: Pantoprazole 20 MG TABCR PO ×2 (07:45→19:50)
[2024-07-02] MEDS: Potassium Chloride 20 MEQ TABCR PO (07:45)
[2024-07-02] MEDS: Gabapentin 300 MG CAP 900 MG PO ×3 (07:46→19:50)
[2024-07-02] MEDS: DULoxetine 30 MG CAP PO (07:47)
[2024-07-02] MEDS: HYDROmorphone 2 MG TAB PO ×3 (07:48→19:49)
[2024-07-02] MEDS: Ascorbic Acid 500 MG TAB PO (07:49)
[2024-07-02] MEDS: Multivitamin TAB 1 TAB PO (07:49)
[2024-07-02 08:43] VITALS: BP 117/72; PULSE 104; RESP 20; TEMP 38.2; O2SAT 95
--- NOTE | 2024-07-02 09:56 | CMPROGNOTE_ITS ---
Date of service: 07/02/24 Time of Service: 09:56 Care Management Progress Note Progress Note Text Progress Note Text: Kirk went to for an MRI today. Impression: Osteomyelitis and septic arthritis of the left hip. Possible early septic arthritis versus septic bursitis of the right hip. Attempts were again made to transfer him to a tertiary care center however there are still no beds available. When CM attempted to meet with Kirk this morning he was in MRI. This afternoon Kirk was completely wrapped in a blanket with his head covered, so CM did not disturb him. Discharge Potential Discharge Needs: Other (return to SNF) Anticipated Barriers to Discharge: Other (patient states hew refuses to return to [facility]) Patient/Family Education Needs: Review discharge instructions, discuss Ask Me Three Transportation: Other (to be determined by disposition) Plan: Anticipate Kirk will be transferred back to [facility] when medically cleared, although he prefers not to return there. He had an MRI today. If he has evidence of osteomyelitis he may be transferred to [facility]. CM will follow and continue to support discharge planning efforts. Social Determinants of Health Screening Will the Patient Participate in the Screening?: Unable to obtain Do you worry about having a steady place to live?: choose not to answer In the past 12 months, have you had to go without electric, gas, oil or water in your home?: choose not to answer Have you or anyone in your house had to go without enough food to eat?: choose not to answer Has lack of transportation kept you from medical appointments or from doing things needed for daily living?: choose not to answer Has anyone in your life made you feel unsafe or unsupported?: choose not to answer How hard is it for you to pay for the very basics like food, housing, medical care, and heating? Would you say it is:: Not hard at all Do you want help finding or keeping work or a job?: I do not need or want help If for any reason you need help with day-to-day activities such as bathing, preparing meals, shopping, managing finances, etc., do you get the help you need?: I get all the help I need How often do you feel lonely or isolated from those around you?: Never Do you speak a language other than [place]ese at home?: No Does the patient want assistance with any of the above?: No Health Related Social Needs Health related social needs: material hardship(utilities) (Z59.12)
[2024-07-02] MEDS: LORazepam 2 MG/ML VIAL 1.5 MG IVP (10:42)
[2024-07-02] MEDS: HYDROmorphone 2 MG/ML SYR 1 MG IVP (10:42)
[2024-07-02] MEDS: Normal Saline Flush 10 ML SYR IVP ×3 (10:44→19:50)
--- NOTE | 2024-07-02 11:40 | PGE_ITS ---
Date of Service Date of service: 07/02/24 Time of Service: 11:40 Assessment and Plan Assessment and plan (1) Pressure ulcer of left hip: Status: Acute Assessment and plan: Very deep pressure ulcer that has worsening with some systemic symptoms. CT concerning for osteo; MRI positive for osteo: Osteomyelitis and septic arthritis of the left hip. Possible early septic arthritis versus septic bursitis of the right hip.- Started on Zosyn and Vanco s/t fever and rising wbc - altho surgery doesn't feel they are needed, will continue for now Case reviewed with orthopedics. They are at capacity Surgery consult recommends same wound care as at - nurse wound care consult pending Ortho consult - recommends transfer to tertiary - see their note Anesthesia recommends transfer to tertiary - see their note Continue wound care, off loading with pressure mattress Pain mgt Patient aware of dx and pending tx once there is capacity somewhere and he is accepted - call [facility] daily (2) Chronic pain: Status: Chronic Assessment and plan: Continue outpatient medications (3) Anemia: Status: Chronic Assessment and plan: has been chronic. Ferritin 168 (4) Depression: Status: Chronic Assessment and plan: conitnue outpatient medications. (5) GERD with apnea without esophagitis: Status: Acute Assessment and plan: continue pantoprazole and carbate . (6) DVT prophylaxis: Status: Acute Assessment and plan: Enoxaparin Subjective Subjective Patient reports: no new complaints, feels better, still having pain, tolerating liquids well, tolerating a regular diet, bowel movement and fever; denies diarrhea, blood in stool, vomiting or shortness of breath Interval history since last seen: Patient states he is feeling poorly, however possibly better than yesterday. He refused blood draw this am, unclear why, but agreed to it later in the day. Exam Narrative Exam Narrative: GEN: Alert and oriented x 4, pleasant and cooperative, gives linear history. No acute distress at rest. HEENT: Head atraumatic. Conjunctiva clear, no icterus. PEERL, EOMI. no rhinorrhea. MMM, OP benign. Neck is supple with no masses or lymphadenopathy, trachea midline LUNGS: CTAB with normal effort CV: RRR with no murmurs, gallops, or rubs. ABD: active bowel sounds, soft, nontender and nondistended. No masses. EXT: no cyanosis, clubbing. 1+ bilateral edema in feet. Right heel with defect, healed wound. MSK: No joint redness or swelling NEURO: CN 2-12 grossly intact. Normal movement of arms, none in legs. No sensation in legs. Normal speech and coordination of UE.. No tremor SKIN: No rashes other than his wounds. Lare wound to left hip to ischial area with track into gluteal cleft with yellowish malodorous drainage PSYCH: normal mood and affect Objective Last Vital Signs Temp 38.2 C H 07/02/24 08:43 Pulse 104 H 07/02/24 08:43 Resp 20 07/02/24 08:43 BP 117/72 07/02/24 08:43 Pulse Ox 95 07/02/24 08:43 Time Spent with Patient Time Spent with Patient: 25-34 minutes Time was spent: preparing to see the patient(eg.review tests), ordering medications,tests, procedures, referring, communicating with other health acute care nurse practitioner, indepentently interpreting results, counseling the patient and care coordination
[2024-07-02] MEDS: Gadoterate meglumine 20 ML SYRINGE IVP (11:59)
--- NOTE | 2024-07-02 12:45 | PHA.REVIEW2 ---
Pharmacy Admission Review Admission Clinical Review Admission Pharmacy Review: Decubitus ulcer of ischial area, stage 4 (Acute) DVT prophylaxis (Acute) Decubitus ulcer of sacral region, stage 4 (Acute) Pressure ulcer of left hip (Acute) GERD with apnea without esophagitis (Acute) Paraplegia (Acute) shellfish derived Allergy (Severe, Verified 06/30/24 15:24) Anaphylaxis lobster Allergy (Unknown, Verified 06/30/24 17:48) Unknown shrimp Allergy (Unknown, Verified 06/30/24 17:48) Unknown acetaminophen Adverse Reaction (Verified 06/30/24 15:24) Other (See Comment) Resuscitation Status DNR Height 5 ft 6 in Weight 135.1 kg Pharmacy Admission Review Renal Dosing Renal Dosing: BUN 11 mg/dL (7-18) 07/01/24 08:50 Creatinine 0.7 mg/dL (0.70-1.30) 07/01/24 08:50 Medications needing adjustments: Reviewed (CrCl 181.3 mL/min) List of meds needing interventions: Current medications are okay Anticoagulation Anticoagulation: Hgb 10.7 g/dL (13.5-17.5) L 07/01/24 08:50 Hct 33.5 % (40.0-50.0) L 07/01/24 08:50 Plt Count 269 10^3/uL (130-400) 07/01/24 08:50 Creatinine 0.7 mg/dL (0.70-1.30) 07/01/24 08:50 DVT Prophylaxis: Reviewed (SCDs) Opiate Usage Evaluate Pain Scale/Pains Meds: Reviewed (hydromorphone 2mg PO TID scheduled) Scheduled Bowel Reg ordered if on Opiates?: Yes (Miralax) Relevant Labs Relevant Labs: ESR 103 mm/hr (0-15) H 06/30/24 15:52 Sodium 137 mmol/L (136-145) 07/01/24 08:50 Potassium 3.6 mmol/L (3.5-5.1) 07/01/24 08:50 Chloride 100 mmol/L (98-107) 07/01/24 08:50 Magnesium 1.7 mg/dL 07/01/24 08:50 C-Reactive Protein 12.33 mg/dL (<or=0.5) H 07/01/24 08:50 Electrolytes, C-Reactive P, ESR: Reviewed (labs pending) Cardiac Review BP, HR, EF%: Reviewed (HR 104, BP WNL) QTc Review QTc: Reviewed (No EKG on file) IV to PO Switch IV Medications: Intervened (vancomycin and Zosyn) Home Meds Home Med List reviewed: Reviewed Current Meds Current Medication Order Review: Reviewed Pharmacy Antibiotic Review Relevant Labs: WBC 7.46 10^3/uL (4.4-10.8) 07/01/24 08:50 Temperature 38.2 C 0843 Pharmacy Antibiotic Activity: C/S review and Reviewed, no change Comments: Patient was started on vancomycin and Zosyn today for infected ulcer/ possible osteomyelitis. Put in order for vanco loading dose of 3000mg (patient weight 135 kg). Will calculate recommended dose and order level once loading dose is given. Blood cultures are pending.
--- NOTE | 2024-07-02 13:56 | DI.VRAD_ITS ---
PROCEDURE INFORMATION: Exam: MR Pelvis Without and With Contrast Exam date and time: 07/02/2024 11:39 AM Age: 39 years old Clinical indication: Other: Non healing wound ? osteo TECHNIQUE: Imaging protocol: Magnetic resonance imaging of the pelvis without and with contrast. Contrast material: DOTAREM; Contrast volume: 20 ml; Contrast route: INTRAVENOUS (IV); COMPARISON: CT PELVIC W 06/30/2024 5:02 PM FINDINGS: Intraperitoneal space: No free fluid. Urinary bladder: Bladder is unremarkable. Reproductive: Unremarkable. Lymph nodes: No enlarged nodes. Bones/joints: Large joint effusion at the left hip with lateral subluxation of the femoral head from the acetabulum. Marked surrounding intramuscular and soft tissue edema. Marked bone marrow edema within the femoral head and acetabulum. Normal SI joints and pubic symphysis. Soft tissues: Large left ischial decubitus ulcer extending to the left hip joint. Edema around the right greater trochanteric bursa , with a tract extending laterally to the skin surface and small joint effusion. No significant edema within the right femur. IMPRESSION: Osteomyelitis and septic arthritis of the left hip. Possible early septic arthritis versus septic bursitis of the right hip. Additional findings as described. Dictated and Authenticated by: Bridgette Baires MD. Orderin Trang Velez MD
[2024-07-02 15:10] LABS: Abs Immature Grans 0.03 10^3/uL (0.0-0.06); Absolute Basophil Count 0.04 10^3/uL (0.0-0.2); Absolute Eosinophil Count 0.03 10^3/uL (0.0-0.7); Absolute Lymphocyte Count 1.41 10^3/uL (1.2-3.4); Absolute Monocyte Count 0.92 10^3/uL (0.1-0.8); Absolute Neutrophil Count 7.72 10^3/uL (1.2-6.7); Basophils % 0.4 %; Eosinophils % 0.3 %; HGB 10.8 g/dL (13.5-17.5); Immature Grans % 0.3 %; Lymphocytes % 13.9 %; MCH 24.5 pg (27.0-33.0); MCHC 32.7 % (32.0-36.0); MCV 75 fL (80-95); Monocytes % 9.1 %; Platelet Count 186 10^3/uL (130-400); RDW 15.4 % (11.8-14.1); RDW-SD 42.3 fL; WBC 10.15 10^3/uL (4.4-10.8)
[2024-07-02 15:27] LABS: Anion Gap 8.9 mmol/L (3-11); BUN 11 mg/dL (7-18); C-Reactive Protein 18.77 mg/dL (<or=0.5); CO2 25.1 mmol/L (21.0-32.0); CREATININE 0.8 mg/dL (0.70-1.30); Calcium 8.8 mg/dL (8.5-10.1); Chloride 98 mmol/L (98-107); Estimated GFR 114.02 (mL/min/1.73m2); Glucose 132 mg/dL (74-106); Magnesium 1.6 mg/dL; Potassium 4.2 mmol/L (3.5-5.1); Sodium 132 mmol/L (136-145)
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
[2024-07-02] MEDS: PIPERACILLIN/TAZO 4.5 GM in Normal Saline 100 ML IVPB (17:44)
[2024-07-02] MEDS: Enoxaparin 40 MG/0.4 ML SYR SC (19:50)
[2024-07-02] MEDS: QUEtiapine 100 MG TAB 200 MG PO (19:50)
[2024-07-02 20:20] VITALS: BP 90/65; PULSE 66; TEMP 39.4; O2SAT 93
[2024-07-02 21:18] LABS: Vancomycin, Random 18.5 ug/mL
[2024-07-02] MEDS: VANCOMYCIN/WATER (PEG) 1.75 GM/350 ML BAG IVPB (21:49)
[2024-07-03 00:21] VITALS: TEMP 39.2
[2024-07-03] MEDS: PIPERACILLIN/TAZO 4.5 GM in Normal Saline 100 ML IVPB ×3 (01:49→22:02)
[2024-07-03 02:54] VITALS: TEMP 39.3
[2024-07-03] MEDS: VANCOMYCIN/WATER (PEG) 1.75 GM/350 ML BAG IVPB (06:14)
[2024-07-03 07:50] VITALS: BP 125/72; PULSE 96; RESP 18; TEMP 36.6; O2SAT 93
[2024-07-03] MEDS: Pantoprazole 20 MG TABCR PO ×2 (09:24→20:03)
[2024-07-03] MEDS: Ascorbic Acid 500 MG TAB PO (09:24)
[2024-07-03] MEDS: Gabapentin 300 MG CAP 900 MG PO ×3 (09:24→20:02)
[2024-07-03] MEDS: Multivitamin TAB 1 TAB PO (09:25)
[2024-07-03] MEDS: DULoxetine 30 MG CAP PO (09:25)
[2024-07-03] MEDS: HYDROmorphone 2 MG TAB PO ×3 (09:25→20:02)
[2024-07-03] MEDS: Normal Saline Flush 10 ML SYR IVP ×2 (09:26→22:06)
[2024-07-03] MEDS: Potassium Chloride 20 MEQ TABCR PO (09:26)
--- NOTE | 2024-07-03 09:29 | PGE_ITS ---
Date of Service Date of service: 07/03/24 Time of Service: 09:30 Assessment and Plan Assessment and plan (1) Pressure ulcer of left hip: Status: Acute Assessment and plan: Ongoin very deep pressure ulcer, prsenting with fever MRI shows osteo s/p concerns on CT Possible early septic arthritis versus septic bursitis of the right hip. On zosyn and Vanco Blood Cx: GPC in one bottle- Started on Zosyn and Vanco s/t fever and rising wbc - altho surgery doesn't feel they are needed, will continue for now On admission case reviewed with orthopedics- at [facility] Surgery consultation: recommendation for wound care as at [place] Wound care consult pending Ortho consultation : recommendation for transfer to tertiary - see their notes Anesthesia recommendation is also for transfer to tertiary - see their notes -[facility], [facility] at [facility] - [facility] and [facility]: Call return pending from provider Continue wound care until wound consult recommendations. Position change Q2 and off loading with pressure mattress Continue pain management with PRN opiods - allergy to APAP listed Patient aware of dx and pending tx Continue to reach out to tertiary care facility daily: [facility], [facility], [facility], [facility]- not an option now), [facility] closed for admission on 07/03- will call in AM (2) Gram-positive cocci bacteremia: Status: Acute Assessment and plan: Blood Cx drawn on 07/01 - today grows GPC in one bottle Second bottle still pending this PM Repeat cultures ordered On Vanco and Zosyn- Consider d/c Zosyn once 2nd bottle resulted (3) Chronic pain: Status: Chronic Assessment and plan: Continue home medication regimen (4) Anemia: Status: Chronic Assessment and plan: Chronic. Ferritin 168 CBC in AM (5) Depression: Status: Chronic Assessment and plan: On outpatient medications. (6) GERD with apnea without esophagitis: Status: Acute Assessment and plan: continue PPI and sucralfate (7) DVT prophylaxis: Status: Acute Assessment and plan: ON LMWH Enoxaparin Discussed with Dr. Ulloa Subjective Subjective Interval history since last seen: Refusing blood work this a.m., stating what is to you when risks explained. Reports nausea, not relieved by Zofran, poor oral intake. Denies fevers night sweats but reporting chills to RN later Exam Narrative Exam Narrative: Patient alert and oriented to self and situation, confused otherwise. No acute distress noticed, lower extremity bilateral paralysis, good sectionizer, S1-S2, no murmur, pulses positiveX4, clear lungs with diminished bases abdomen is soft nontender nondistended, dry and intact dressing to left hip?no drainage Objective Last Vital Signs Temp 36.6 C 07/03/24 07:50 Pulse 96 H 07/03/24 07:50 Resp 18 07/03/24 07:50 BP 125/72 07/03/24 07:50 Pulse Ox 93 07/03/24 07:50 Laboratory Results - last 24 hr 07/02/24 07/02/24 14:50 20:39 WBC 10.15 RBC 4.40 Hgb 10.8 L Hct 33.0 L MCV 75 L MCH 24.5 L MCHC 32.7 RDW 15.4 H Plt Count 186 MPV 11.0 Immature Gran % 0.3 Neutrophils % 76.0 Lymphocytes % 13.9 Monocytes % 9.1 Eosinophils % 0.3 Basophils % 0.4 Nucleated RBC % 0.0 Absolute Neutrophils 7.72 H Absolute Lymphocytes 1.41 Absolute Monocytes 0.92 H Absolute Eosinophils 0.03 Absolute Basophils 0.04 Sodium 132 L Potassium 4.2 Chloride 98 Carbon Dioxide 25.1 Anion Gap 8.9 BUN 11 Creatinine 0.8 Est GFR (CKD-EPI 2020) 114.02 Glucose 132 H Calcium 8.8 Magnesium 1.6 C-Reactive Protein 18.77 H Random Vancomycin 18.5 Time Spent with Patient Time Spent with Patient: >50 minutes Time was spent: preparing to see the patient(eg.review tests), obtaining and/or reviewing separately otained hiistory, ordering medications,tests, procedures, referring, communicating with other health wound care rn, indepentently interpreting results, counseling the patient and care coordination
--- NOTE | 2024-07-03 09:33 | PDOC.CMPRO ---
Date of service: 07/03/24 Time of Service: 09:33 Care Management Progress Note Progress Note Text Progress Note Text: Kirk was lying in bed when CM met with him. He was not feeling well and became anxious when several people entered his room at the same time. CM left at that point and suggested that others do the same when possible. Kirk became febrile last night with a temperature of 39.4 C. He also became hypotensive with a SBP of 90/65 and continues to be tachycardic. Blood cultures drawn on 07/02/24 are growing gram positive cocci in clusters and new blood cultures were drawn today. Kirk has been inconsistent with allowing care and testing to be done, however after a couple of hours, did allow th blood cultures to be drawn. Efforts to secure a bed in transfer to a tertiary care facility continue. [facility], [facility], [facility]. [facility] and [facility] were contacted and no beds are available. A wound consult was ordered yesterday and is expected to be completed today and a specialty bed has been obtained for Kirk. Discharge Potential Discharge Needs: Other (transfer to tertiary care center) Anticipated Barriers to Discharge: Bed availability Patient/Family Education Needs: Review discharge instructions, discuss Ask Me Three Transportation: EMS Plan: Anticipate Kirk will be transferred to a tertiary care center for definitive treatment of his hip infection/osteomyelitis and septic arthritis. No beds are available to date. CM will follow and continue to support discharge planning efforts. Social Determinants of Health Screening Will the Patient Participate in the Screening?: Unable to obtain Do you worry about having a steady place to live?: choose not to answer In the past 12 months, have you had to go without electric, gas, oil or water in your home?: choose not to answer Have you or anyone in your house had to go without enough food to eat?: choose not to answer Has lack of transportation kept you from medical appointments or from doing things needed for daily living?: choose not to answer Has anyone in your life made you feel unsafe or unsupported?: choose not to answer How hard is it for you to pay for the very basics like food, housing, medical care, and heating? Would you say it is:: Not hard at all Do you want help finding or keeping work or a job?: I do not need or want help If for any reason you need help with day-to-day activities such as bathing, preparing meals, shopping, managing finances, etc., do you get the help you need?: I get all the help I need How often do you feel lonely or isolated from those around you?: Never Do you speak a language other than Dutch at home?: No Does the patient want assistance with any of the above?: No Health Related Social Needs Health related social needs: material hardship(utilities) (Z59.12)
[2024-07-03] MEDS: Prochlorperazine 10 MG/2 ML VIAL 5 MG IVP (14:31)
[2024-07-03] MEDS: LORazepam 1 MG TAB PO (14:32)
[2024-07-03] MEDS: Ibuprofen 600 MG TAB PO (14:32)
[2024-07-03] MEDS: Normal Saline 250 ML 500 ML IV (14:34)
[2024-07-03 16:13] VITALS: BP 97/56; PULSE 101; RESP 16; TEMP 36.5; O2SAT 92
[2024-07-03 16:19] LABS: Abs Immature Grans 0.04 10^3/uL (0.0-0.06); Absolute Basophil Count 0.03 10^3/uL (0.0-0.2); Absolute Eosinophil Count 0.03 10^3/uL (0.0-0.7); Absolute Lymphocyte Count 1.02 10^3/uL (1.2-3.4); Absolute Monocyte Count 0.65 10^3/uL (0.1-0.8); Absolute Neutrophil Count 7.19 10^3/uL (1.2-6.7); Basophils % 0.3 %; Eosinophils % 0.3 %; HCT 28.9 % (40.0-50.0); HGB 9.3 g/dL (13.5-17.5); Immature Grans % 0.4 %; Lymphocytes % 11.4 %; MCH 24.4 pg (27.0-33.0); MCHC 32.2 % (32.0-36.0); MCV 76 fL (80-95); MPV 10.3 fL (8.0-11.0); Monocytes % 7.3 %; Neutrophils % 80.3 %; Platelet Count 168 10^3/uL (130-400); RBC 3.81 10^6/uL (4.36-5.78); RDW 15.1 % (11.8-14.1); WBC 8.96 10^3/uL (4.4-10.8)
[2024-07-03 16:46] LABS: Anion Gap 9.5 mmol/L (3-11); BUN 8 mg/dL (7-18); C-Reactive Protein 22.59 mg/dL (<or=0.5); CO2 27.5 mmol/L (21.0-32.0); CREATININE 0.8 mg/dL (0.70-1.30); Calcium 8.6 mg/dL (8.5-10.1); Chloride 99 mmol/L (98-107); Estimated GFR 114.02 (mL/min/1.73m2); Glucose 141 mg/dL (74-106); Magnesium 1.6 mg/dL; Potassium 3.2 mmol/L (3.5-5.1); Sodium 136 mmol/L (136-145)
[2024-07-03 17:25] LABS: Vancomycin, Random 15.1 ug/mL
[2024-07-03] MEDS: QUEtiapine 100 MG TAB 200 MG PO (20:02)
[2024-07-03] MEDS: Enoxaparin 40 MG/0.4 ML SYR SC (20:04)
--- NOTE | 2024-07-03 20:09 | W.PM.PROGNOT ---
Date of Service Date of service: 07/04/24 Time of Service: 09:35 Assessment and Plan Assessment and plan (1) Pressure ulcer of left hip: Start date: 07/04/24 Start time: 11:53 Status: Acute Assessment and plan: Ongoin very deep pressure ulcer, prsenting with fever MRI report: osteo s/p concerns on CT - early septic arthritis versus septic bursitis of the right hip. Continue zosyn and Vanco --Tmax 07/04 39.2 Blood Cx: GPC in one bottle only - Repat Blood Cx pending On admission case reviewed with orthopedics Surgery consultation: recommendation for wound care as at [place] and ortho consult Wound care consult ordered on admission and pending Ortho consultation : recommendation for transfer to tertiary - see their notes Anesthesia consultation : recommendation is also for transfer to tertiary - see their notes -[facility] , [facility], [place], [facility] at capacity on 07/03 - [facility] and [facility]: Attempted 07/03-unsuccessful- Continue wound care as per [place] regimen until wound consult recommendations. Continue: Position change Q2 and off loading with pressure mattress ongoing pain management with PRN opiods - allergy to APAP listed Patient aware of dx and pending tx Dr. Valdes from [facility] on 07/03 at 20:11 : Recommending transfer to a closer tertiary facility [facility] VS [facility]- as non-urgent on IV antibiotics for chronic wound with osteomylitis with plans for longterm post-surgical and antibiotic therapy Continue to reach out to tertiary care facility daily: [facility] called 07/04-Medicine at capacity- ortho recommends medicine admit with ortho consult, Sx could not accept The patient will only consider transfer to [facility] : Call [facility] in AM (2) Gram-positive cocci bacteremia: Start date: 07/04/24 Start time: 12:38 Status: Acute Assessment and plan: 07/03: Blood Cx drawn on 07/01 -grew GPC in one bottle Second bottle no growth at 24 hours - but remains febrile Repeat cultures pending On Vanco and Zosyn- Initial 2nd bottle resulted negative wound culture ordered and pending Considering d/c Zosyn if wound shows GPC or no growth Elevated CRP : max 22.59 -07/03 (3) Chronic pain: Status: Chronic Assessment and plan: On home medication regimen (4) Anemia: Status: Chronic Assessment and plan: Chronic and stable CBC in AM (5) Depression: Status: Chronic Assessment and plan: Continue outpatient medication regimen. (6) GERD with apnea without esophagitis: Status: Acute Assessment and plan: Ongoing PPI and sucralfate (7) DVT prophylaxis: Status: Acute Assessment and plan: On Enoxaparin Discussed with Dr. Ulloa Subjective Subjective Patient reports: feels better, tolerating liquids well, tolerating a regular diet, voiding w/o difficulty, flatus, bowel movement, diarrhea and fever; denies nausea, vomiting or shortness of breath Exam Narrative Exam Narrative: Patient alert and oriented to self and situation, confused otherwise. 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, S1-S2, no murmur, pulses positiveX4, clear lungs ; abdomen is nondistended soft nontender , dry and intact dressing to left hip?no drainage, ortega is patent Objective Last Vital Signs Temp 36.5 C 07/03/24 16:13 Pulse 101 H 07/03/24 16:13 Resp 16 07/03/24 16:13 BP 97/56 L 07/03/24 16:13 Pulse Ox 92 07/03/24 16:13 Laboratory Results - last 24 hr 07/02/24 07/03/24 20:39 15:50 WBC 8.96 RBC 3.81 L Hgb 9.3 L Hct 28.9 L MCV 76 L MCH 24.4 L MCHC 32.2 RDW 15.1 H Plt Count 168 MPV 10.3 Immature Gran % 0.4 Neutrophils % 80.3 Lymphocytes % 11.4 Monocytes % 7.3 Eosinophils % 0.3 Basophils % 0.3 Nucleated RBC % 0.0 Absolute Neutrophils 7.19 H Absolute Lymphocytes 1.02 L Absolute Monocytes 0.65 Absolute Eosinophils 0.03 Absolute Basophils 0.03 Sodium 136 Potassium 3.2 L D Chloride 99 Carbon Dioxide 27.5 Anion Gap 9.5 BUN 8 Creatinine 0.8 Est GFR (CKD-EPI 2020) 114.02 Glucose 141 H Calcium 8.6 Magnesium 1.6 C-Reactive Protein 22.59 H Random Vancomycin 18.5 15.1 Time Spent with Patient Time Spent with Patient: >50 minutes Time was spent: preparing to see the patient(eg.review tests), obtaining and/or reviewing separately otained hiistory, ordering medications,tests, procedures, referring, communicating with other health cattle care worker, indepentently interpreting results, counseling the patient and care coordination
[2024-07-03] MEDS: POTASSIUM CHLORIDE 20 MEQ/100 ML BAG 50 MEQ IV_INF ×2 (20:56→22:49)
[2024-07-03] MEDS: VANCOMYCIN/WATER (PEG) 1.5 GM/300 ML BAG IVPB (20:56)
[2024-07-03] MEDS: Bacitracin 1 PACKET (22:05)
[2024-07-04] MEDS: VANCOMYCIN/WATER (PEG) 1.5 GM/300 ML BAG IVPB ×3 (05:36→22:35)
[2024-07-04] MEDS: PIPERACILLIN/TAZO 4.5 GM in Normal Saline 100 ML IVPB (05:37)
[2024-07-04 06:42] VITALS: TEMP 36.9
[2024-07-04 07:03] LABS: Abs Immature Grans 0.02 10^3/uL (0.0-0.06); Absolute Basophil Count 0.04 10^3/uL (0.0-0.2); Absolute Eosinophil Count 0.29 10^3/uL (0.0-0.7); Absolute Lymphocyte Count 1.47 10^3/uL (1.2-3.4); Absolute Monocyte Count 0.59 10^3/uL (0.1-0.8); Absolute Neutrophil Count 6.08 10^3/uL (1.2-6.7); Basophils % 0.5 %; Eosinophils % 3.4 %; HCT 30.9 % (40.0-50.0); HGB 9.9 g/dL (13.5-17.5); Immature Grans % 0.2 %; Lymphocytes % 17.3 %; MCH 24.4 pg (27.0-33.0); MCV 76 fL (80-95); MPV 10.8 fL (8.0-11.0); Monocytes % 6.9 %; Neutrophils % 71.7 %; Platelet Count 171 10^3/uL (130-400); RBC 4.05 10^6/uL (4.36-5.78); RDW 15.3 % (11.8-14.1); RDW-SD 42.2 fL; WBC 8.49 10^3/uL (4.4-10.8)
[2024-07-04 07:15] LABS: Anion Gap 9.2 mmol/L (3-11); BUN 9 mg/dL (7-18); CO2 22.8 mmol/L (21.0-32.0); CREATININE 0.8 mg/dL (0.70-1.30); Calcium 8.9 mg/dL (8.5-10.1); Chloride 103 mmol/L (98-107); Estimated GFR 114.02 (mL/min/1.73m2); Glucose 88 mg/dL (74-106); Potassium 4.2 mmol/L (3.5-5.1); Sodium 135 mmol/L (136-145)
[2024-07-04 08:24] VITALS: BP 119/82; PULSE 98; RESP 18; O2SAT 100
[2024-07-04] MEDS: Gabapentin 300 MG CAP 900 MG PO ×3 (08:26→20:24)
[2024-07-04] MEDS: HYDROmorphone 2 MG TAB PO ×4 (08:26→22:35)
[2024-07-04] MEDS: Potassium Chloride 20 MEQ TABCR PO (08:26)
[2024-07-04] MEDS: DULoxetine 30 MG CAP PO (08:27)
[2024-07-04] MEDS: Pantoprazole 20 MG TABCR PO ×2 (08:27→16:08)
[2024-07-04] MEDS: Multivitamin TAB 1 TAB PO (08:27)
[2024-07-04] MEDS: Normal Saline Flush 10 ML SYR IVP ×3 (08:27→22:36)
--- NOTE | 2024-07-04 11:18 | CHAPLAIN ---
Benito was in bed, doing something on his phone when I visited. I explained my role and offered support. He continued to look at his phone and didn't engage in a conversation. According to Care Management notes, he lived with a friend in the [place] area and when she lost the housing he went into the hospital and to a fpc from there, so he is a distance from his social support.
[2024-07-04] MEDS: Lactobacillus Acidophilus CAP 1 CAP PO ×2 (14:18→20:24)
[2024-07-04] MEDS: Enoxaparin 40 MG/0.4 ML SYR SC (16:09)
--- NOTE | 2024-07-04 18:34 | CMPROGNOTE_ITS ---
Date of service: 07/04/24 Time of Service: 18:34 Care Management Progress Note Progress Note Text Progress Note Text: Kirk was lying in bed when CM met with him. He stated that he is doing ok, but that his pain is an 8/10; he stated that his RN recently gave him medication. Kirk reported that he spoke to the hospitalist today and requested that he only be transferred to [facility]. Per report, there are no current beds available at [facility]. He did not express any further concerns. CM will continue to follow. Discharge Potential Discharge Needs: Other (transfer to tertiary facility) Anticipated Barriers to Discharge: Bed availability Patient/Family Education Needs: Review discharge instructions, discuss Ask Me Three Transportation: EMS Plan: Anticipate Kirk will be transferred to a tertiary care center for definitive treatment of his hip infection/osteomyelitis and septic arthritis. No beds are available to date. CM will follow and continue to support discharge planning efforts. Social Determinants of Health Screening Will the Patient Participate in the Screening?: Unable to obtain Do you worry about having a steady place to live?: choose not to answer In the past 12 months, have you had to go without electric, gas, oil or water in your home?: choose not to answer Have you or anyone in your house had to go without enough food to eat?: choose not to answer Has lack of transportation kept you from medical appointments or from doing things needed for daily living?: choose not to answer Has anyone in your life made you feel unsafe or unsupported?: choose not to answer How hard is it for you to pay for the very basics like food, housing, medical care, and heating? Would you say it is:: Not hard at all Do you want help finding or keeping work or a job?: I do not need or want help If for any reason you need help with day-to-day activities such as bathing, preparing meals, shopping, managing finances, etc., do you get the help you need?: I get all the help I need How often do you feel lonely or isolated from those around you?: Never Do you speak a language other than [place] at home?: No Does the patient want assistance with any of the above?: No Health Related Social Needs Health related social needs: material hardship(utilities) (Z59.12)
[2024-07-04] MEDS: LORazepam 1 MG TAB PO (20:23)
[2024-07-04] MEDS: QUEtiapine 100 MG TAB 200 MG PO (20:24)
[2024-07-04] MEDS: Ibuprofen 600 MG TAB PO (22:35)
[2024-07-04 23:28] VITALS: BP 105/62; PULSE 103; RESP 16; TEMP 36.6; O2SAT 95
--- NOTE | 2024-07-05 01:24 | NUR.NOTE ---
Pt received 2200 dose of vanco and Zosyn, not reflecting in the MAR accurately. Called Rx to correct problem in MAR and both meds were reordered and acknowledged.
[2024-07-05] MEDS: Enoxaparin 40 MG/0.4 ML SYR SC ×2 (04:10→16:54)
[2024-07-05] MEDS: PIPERACILLIN/TAZO 4.5 GM in Normal Saline 100 ML IVPB ×2 (06:06→15:09)
[2024-07-05] MEDS: VANCOMYCIN/WATER (PEG) 1.5 GM/300 ML BAG IVPB (06:08)
[2024-07-05] MEDS: Normal Saline Flush 10 ML SYR IVP ×5 (06:09→20:54)
[2024-07-05 08:00] VITALS: BP 90/58; PULSE 58; RESP 18; TEMP 36.1; O2SAT 98
[2024-07-05] MEDS: HYDROmorphone 2 MG TAB PO ×4 (10:39→20:54)
[2024-07-05] MEDS: Gabapentin 300 MG CAP 900 MG PO ×3 (10:40→20:55)
[2024-07-05] MEDS: Potassium Chloride 20 MEQ TABCR PO (10:40)
[2024-07-05] MEDS: Ascorbic Acid 500 MG TAB PO (10:41)
[2024-07-05] MEDS: DULoxetine 30 MG CAP PO (10:41)
[2024-07-05] MEDS: Lactobacillus Acidophilus CAP 1 CAP PO ×3 (10:42→20:56)
[2024-07-05] MEDS: Multivitamin TAB 1 TAB PO (10:42)
[2024-07-05] MEDS: DAPTOmycin 1,000 MG in Normal Saline 50 ML 100 MG IVPB (15:10)
--- NOTE | 2024-07-05 16:04 | PGE_ITS ---
Date of Service Date of service: 07/05/24 Time of Service: 16:04 Assessment and Plan Assessment and plan (1) Pressure ulcer of left hip: Status: Acute Assessment and plan: with osteomyelitis, Unable to get blood draw this morning so unable to follow vanco levels for appropriate dosing. will discontinue and and change to daptomycin not surgical candidate for debridement here, attempts to transfer unsuccessful with no bed availability The patient will only consider transfer to [facility] no beds available. Continue: Position change Q2 and off loading with pressure mattress ongoing pain management with PRN opiods - allergy to APAP listed will need PICC line for supervisor intermediates antibiotics once blood culture clears (2) Gram-positive cocci bacteremia: Status: Acute Assessment and plan: blood cultures on 07/01 and 07/03 growing gram positive cocci was On Vanco and Zosyn- but refusing blood work so vanco discontinued. now dapto and zosyn awaiting final cultures Elevated CRP still climbing : from 12.39 on admission to 22.59 on 07/03 trend weekly (3) Chronic pain: Status: Chronic Assessment and plan: On home medication regimen (4) Anemia: Status: Chronic Assessment and plan: Chronic and stable (5) Depression: Status: Chronic Assessment and plan: Continue outpatient medication regimen. refusing lab draws, consider palliative care consult for goals of care, limits of care (6) GERD with apnea without esophagitis: Status: Acute Assessment and plan: Ongoing PPI and sucralfate (7) DVT prophylaxis: Status: Acute Assessment and plan: On Enoxaparin Discussed with Dr. Ulloa Subjective Subjective Patient reports: no new complaints, tolerating liquids well and tolerating a regular diet Interval history since last seen: refusing lab draw after a failed attempt, hemodynamically stable, no fever. Exam Narrative Exam Narrative: Obese male of stated age in no acute distress lying quietly on his bed head atraumatic eyes nonicteric noninjected neuro awake alert oriented no focal deficits psychiatric appropriate mood and affect. Wounds not visualized declined to have nursing change dressing today. Hemodynamically stable with no fever skin is pink warm dry well-perfused Objective Last Vital Signs Temp 36.1 C L 07/05/24 08:00 Pulse 58 L 07/05/24 08:00 Resp 18 07/05/24 08:00 BP 90/58 L 07/05/24 08:00 Pulse Ox 98 07/05/24 08:00 Time Spent with Patient Time Spent with Patient: 35-49 minutes Time was spent: preparing to see the patient(eg.review tests), obtaining and/or reviewing separately otained hiistory, ordering medications,tests, procedures, indepentently interpreting results and counseling the patient
[2024-07-05] MEDS: Pantoprazole 20 MG TABCR PO (16:54)
[2024-07-05 19:29] VITALS: BP 120/71; PULSE 86; RESP 18; TEMP 37.1; O2SAT 98
[2024-07-05 19:55] VITALS: BP 128/83; PULSE 92; RESP 18; O2SAT 98
[2024-07-05] MEDS: QUEtiapine 100 MG TAB 200 MG PO (20:55)
--- NOTE | 2024-07-05 22:35 | NUR.NOTE ---
Pt refused ABX therapy this evening.
[2024-07-06] MEDS: Ibuprofen 600 MG TAB PO (00:18)
[2024-07-06] MEDS: LORazepam 1 MG TAB PO (00:18)
[2024-07-06] MEDS: HYDROmorphone 2 MG TAB PO ×4 (00:19→20:30)
[2024-07-06] MEDS: Normal Saline Flush 10 ML SYR IVP ×4 (00:20→20:24)
[2024-07-06] MEDS: Loperamide 2 MG CAP PO (00:28)
[2024-07-06] MEDS: Gabapentin 300 MG CAP 900 MG PO ×3 (03:18→20:23)
[2024-07-06] MEDS: Enoxaparin 40 MG/0.4 ML SYR SC ×2 (03:18→16:51)
[2024-07-06] MEDS: Lactobacillus Acidophilus CAP 1 CAP PO ×3 (03:19→20:23)
[2024-07-06 03:59] LABS: Abs Immature Grans 0.03 10^3/uL (0.0-0.06); Absolute Basophil Count 0.04 10^3/uL (0.0-0.2); Absolute Eosinophil Count 0.27 10^3/uL (0.0-0.7); Absolute Lymphocyte Count 2.42 10^3/uL (1.2-3.4); Absolute Monocyte Count 0.47 10^3/uL (0.1-0.8); Absolute Neutrophil Count 4.67 10^3/uL (1.2-6.7); Basophils % 0.5 %; Eosinophils % 3.4 %; HCT 27.8 % (40.0-50.0); Immature Grans % 0.4 %; Lymphocytes % 30.6 %; MCH 24.5 pg (27.0-33.0); MCHC 32.4 % (32.0-36.0); MCV 76 fL (80-95); MPV 10.9 fL (8.0-11.0); Monocytes % 5.9 %; Neutrophils % 59.2 %; RBC 3.68 10^6/uL (4.36-5.78); RDW 15.7 % (11.8-14.1); RDW-SD 43.2 fL
[2024-07-06 04:04] LABS: Platelet Count 267 10^3/uL (130-400)
[2024-07-06 04:08] LABS: Anion Gap 4.8 mmol/L (3-11); BUN 8 mg/dL (7-18); CO2 28.2 mmol/L (21.0-32.0); CREATININE 0.6 mg/dL (0.70-1.30); Calcium 8.2 mg/dL (8.5-10.1); Chloride 104 mmol/L (98-107); Estimated GFR 124.37 (mL/min/1.73m2); Glucose 104 mg/dL (74-106); Potassium 3.2 mmol/L (3.5-5.1); Sodium 137 mmol/L (136-145)
[2024-07-06 04:30] LABS: Vancomycin, Random 6.2 ug/mL
[2024-07-06 04:43] LABS: C-Reactive Protein 10.31 mg/dL (<or=0.5)
[2024-07-06 07:30] VITALS: BP 82/55; PULSE 60; RESP 17; TEMP 36.5; O2SAT 95
[2024-07-06] MEDS: DULoxetine 30 MG CAP PO (08:38)
[2024-07-06] MEDS: Multivitamin TAB 1 TAB PO (08:39)
[2024-07-06] MEDS: Potassium Chloride 20 MEQ TABCR PO (08:39)
[2024-07-06] MEDS: Ascorbic Acid 500 MG TAB PO (08:39)
[2024-07-06] MEDS: Pantoprazole 20 MG TABCR PO ×2 (08:39→16:51)
[2024-07-06] MEDS: PIPERACILLIN/TAZO 4.5 GM in Normal Saline 100 ML IVPB (08:54)
[2024-07-06 11:20] VITALS: BP 92/59
--- NOTE | 2024-07-06 11:29 | PGE_ITS ---
Date of Service Date of service: 07/06/24 Time of Service: 11:29 Assessment and Plan Assessment and plan (1) Pressure ulcer of left hip: Status: Acute Assessment and plan: with osteomyelitis, now on daptomycin as he was refusing blood draws. not surgical candidate for debridement here, attempts to transfer unsuccessful with no bed availability The patient will only consider transfer to [facility] no beds available. 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 outpatient provider can consider alternative agent if necessary, will defer to outpatient team will need outpatient referral to wound at [facility] or general surgery, can return to [facility] and rehab pending this referral. Outpatient team to follow up (2) Gram-positive cocci bacteremia: Status: Acute Assessment and plan: blood cultures on 07/01 and 07/03 growing gram positive cocci was On Vanco and Zosyn- but refusing blood work so vanco discontinued. now dapto awaiting final cultures Plan is to discharge on Linezolid. Elevated CRP peaked at 22.59 on 07/03, was 12 on admission, now down to 10.31 trend weekly labs: cbc, cmp, crp and esr (3) Chronic pain: Status: Chronic Assessment and plan: On home medication regimen (4) Anemia: Status: Chronic Assessment and plan: Chronic and stable (5) Depression: Status: Chronic Assessment and plan: Continue outpatient medication regimen. refusing lab draws at times, dressing changes, medications, consider palliative care consult for goals of care, limits of care (6) GERD with apnea without esophagitis: Status: Acute Assessment and plan: Ongoing PPI and sucralfate (7) DVT prophylaxis: Status: Acute Assessment and plan: On Enoxaparin Discussed with Dr. Rees Subjective Subjective Patient reports: no new complaints Interval history since last seen: declined 6 am antibitotic, fall out of bed last evening, no injury hemodynamically stable, no fever eating and drinking well refusing dressing changes. requested time change on medications, now wants it changed back. Exam Narrative Exam Narrative: Obese male of stated age in no acute distress lying quietly on his bed head atraumatic eyes nonicteric noninjected neuro awake alert oriented no focal deficits psychiatric appropriate mood and affect. Wounds not visualized declined to have nursing change dressing today. Hem odynamically stable with no fever skin is pink warm dry well-perfused Objective Last Vital Signs Temp 36.5 C 07/06/24 07:30 Pulse 60 07/06/24 07:30 Resp 17 07/06/24 07:30 BP 92/59 L 07/06/24 11:20 Pulse Ox 95 07/06/24 07:30 Laboratory Results - last 24 hr 07/06/24 03:30 WBC 7.90 RBC 3.68 L Hgb 9.0 L Hct 27.8 L MCV 76 L MCH 24.5 L MCHC 32.4 RDW 15.7 H Plt Count 267 D MPV 10.9 Immature Gran % 0.4 Neutrophils % 59.2 Lymphocytes % 30.6 Monocytes % 5.9 Eosinophils % 3.4 Basophils % 0.5 Nucleated RBC % 0.0 Absolute Neutrophils 4.67 Absolute Lymphocytes 2.42 Absolute Monocytes 0.47 Absolute Eosinophils 0.27 Absolute Basophils 0.04 Sodium 137 Potassium 3.2 L D Chloride 104 Carbon Dioxide 28.2 Anion Gap 4.8 BUN 8 Creatinine 0.6 L Est GFR (CKD-EPI 2020) 124.37 Glucose 104 Calcium 8.2 L C-Reactive Protein 10.31 H Random Vancomycin 6.2 Time Spent with Patient Time Spent with Patient: 35-49 minutes Time was spent: preparing to see the patient(eg.review tests), obtaining and/or reviewing separately otained hiistory, ordering medications,tests, procedures, indepentently interpreting results, counseling the patient and care coordination
[2024-07-06] MEDS: DAPTOmycin 1,000 MG in Normal Saline 50 ML 100 MG IVPB (14:09)
[2024-07-06 14:48] VITALS: BP 108/67; PULSE 82; RESP 16; TEMP 36; O2SAT 96
[2024-07-06 19:30] VITALS: BP 110/66; PULSE 64; RESP 20; TEMP 36.7; O2SAT 95
[2024-07-06] MEDS: QUEtiapine 100 MG TAB 200 MG PO (20:23)
[2024-07-07 00:42] VITALS: TEMP 37.5
[2024-07-07] MEDS: Ibuprofen 600 MG TAB PO (00:56)
[2024-07-07] MEDS: HYDROmorphone 2 MG TAB PO ×2 (00:56→09:17)
[2024-07-07] MEDS: LORazepam 1 MG TAB PO (00:56)
[2024-07-07] MEDS: Lactobacillus Acidophilus CAP 1 CAP PO ×2 (06:29→11:41)
[2024-07-07] MEDS: Enoxaparin 40 MG/0.4 ML SYR SC (06:29)
[2024-07-07] MEDS: Gabapentin 300 MG CAP 900 MG PO ×2 (06:29→11:41)
[2024-07-07] MEDS: Pantoprazole 20 MG TABCR PO (06:29)
[2024-07-07 07:33] VITALS: BP 95/58; PULSE 72; RESP 16; TEMP 36.4; O2SAT 94
--- NOTE | 2024-07-07 09:14 | W.PM.PROGNOT ---
Date of Service Date of service: 07/07/24 Time of Service: 09:14 Assessment and Plan Assessment and plan (1) Pressure ulcer of left hip: Status: Acute Assessment and plan: with osteomyelitis, now on daptomycin as he was refusing blood draws. not surgical candidate for debridement here, attempts to transfer unsuccessful with no bed availability The patient will only consider transfer to [facility] no beds available. 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 outpatient provider can consider alternative agent if necessary, will defer to outpatient team will need outpatient referral to wound at [facility] or general surgery, can return to [facility] and rehab pending this referral. Outpatient team to follow up (2) Gram-positive cocci bacteremia: Status: Acute Assessment and plan: blood cultures on 07/01 and 07/03 growing gram positive cocci was On Vanco and Zosyn- but refusing blood work so vanco discontinued. now dapto awaiting final cultures Plan is to discharge on Linezolid. Elevated CRP peaked at 22.59 on 07/03, was 12 on admission, now down to 10.31 trend weekly labs: cbc, cmp, crp and esr (3) Chronic pain: Status: Chronic Assessment and plan: On home medication regimen (4) Anemia: Status: Chronic Assessment and plan: Chronic and stable (5) Depression: Status: Chronic Assessment and plan: Continue outpatient medication regimen. refusing lab draws at times, dressing changes, medications, consider palliative care consult for goals of care, limits of care (6) GERD with apnea without esophagitis: Status: Acute Assessment and plan: Ongoing PPI and sucralfate (7) DVT prophylaxis: Status: Acute Assessment and plan: On Enoxaparin Discussed with Dr. Rees Subjective Subjective Patient reports: no new complaints Exam Narrative Exam Narrative: Patient alert and oriented to self and situation, confused otherwise. 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
[2024-07-07] MEDS: Normal Saline Flush 10 ML SYR IVP (09:17)
[2024-07-07 10:38] LABS: Anion Gap 5.3 mmol/L (3-11); BUN 8 mg/dL (7-18); CO2 28.7 mmol/L (21.0-32.0); CREATININE 0.6 mg/dL (0.70-1.30); Calcium 8.5 mg/dL (8.5-10.1); Chloride 108 mmol/L (98-107); Estimated GFR 124.37 (mL/min/1.73m2); Glucose 103 mg/dL (74-106); Potassium 3.2 mmol/L (3.5-5.1); Sodium 142 mmol/L (136-145)
[2024-07-07 10:39] LABS: Magnesium 1.8 mg/dL
[2024-07-07] MEDS: Amoxicillin 875/Clav. 125 TAB PO (11:41)
[2024-07-07] MEDS: Potassium Chloride 20 MEQ TABCR PO ×2 (11:41)
[2024-07-07] MEDS: Ascorbic Acid 500 MG TAB PO (11:41)
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
--- NOTE | 2024-07-07 13:39 | NUR.NOTE ---
Nursing Note: Report given to Angela @ [facility]. Included med changes, last bm, meds declined, pain meds +last time admin, blood culture results, outpt recommendations.
--- NOTE | 2024-07-07 15:08 | PDOC.CMDIS ---
Date of service: 07/07/24 Time of Service: 14:00 LACE Index Scoring Tool Questions: Length of Stay (in days): 7 - 13 Was the patient admitted via the E.D.?: Yes E.D. Visits: 2 Answers: Total Score: 10 Risk of Readmission: High Risk Care Management Discharge Plan Reason for Hospitalization: infected decubitus ulcer Discharge Plan: Benito was transferred back to [facility] via EMS, as coordinated by CM, this afternoon. He will f/u with the facility provider and continue per his plan of care. Patient/Family Education Needs: Review of discharge instructions, activity, limitations and discuss Ask me 3. SDOH Health Related Social Needs: Health related social needs material hardship(utilities) (Z59.12)
== END 2024-07-07 13:46 | disposition skilled nursing facility (03) | DRG 593 ==
LOC: ER 07-01 00:14 → MS 07-01 01:20
PROVIDERS: Nurse Practitioner Acute Care; Nurse Practitioner Family; Admitting Provider Family Medicine; Emergency Provider Emergency Medicine; PCP Family Medicine; Responsible Provider Nurse Practitioner Acute Care; Visit Provider Family Medicine
DX: F11.20 Opioid dependence, uncomplicated; G82.20 Paraplegia, unspecified; M86.8X5 Other osteomyelitis, thigh; Z68.42 Body mass index [BMI] 45.0-49.9, adult; M00.852 Arthritis due to other bacteria, left hip; L89.224 Pressure ulcer of left hip, stage 4; R78.81 Bacteremia; G89.29 Other chronic pain; D64.9 Anemia, unspecified; K21.9 Gastro-esophageal reflux disease without esophagitis; F32.A Depression, unspecified; I10 Essential (primary) hypertension; G47.00 Insomnia, unspecified; B18.2 Chronic viral hepatitis C; E55.9 Vitamin D deficiency, unspecified; R53.1 Weakness; F43.10 Post-traumatic stress disorder, unspecified; E66.01 Morbid (severe) obesity due to excess calories; J45.909 Unspecified asthma, uncomplicated; S24.109S Unspecified injury at unspecified level of thoracic spinal cord, sequela; R06.81 Apnea, not elsewhere classified
CPT/HCPCS: 36410; 00123; 36415; 72197; 73521; 80048; 80053; 85652; 87040; 87077; 96374; 96376; 99285; J1650; 72193; 80202; 82728; 83605; 83735; 85025; 86140; 87070; 87186; 87205; 93306; 99222; 99232; 99233; 99239; J0780; J0878; J1171; J2060; J2270; J2543; J3370; J3372; J3480

== ENCOUNTER 2024-08-13 17:09 | Outpatient (REF) | payer MEDICAID, SELFPAY ==
[2024-08-13 16:22] LABS: Bilirubin Negative (Negative); Blood Small (Negative); Clarity Clear (Clear); Glucose Negative (Negative); Ketones Negative (Negative); Leukocyte Esterase Trace (Negative); Nitrite Positive (Negative)
[2024-08-13 16:45] LABS: Bacteria Moderate HPF (Negative); C & S Indicated? C&S Done As Ordered; Crystals Negative HPF (Negative); Epithelial Cells Few HPF (Negative); Mucus Negative (Negative)
== END 2024-08-13 17:10 | disposition home or self-care (01) ==
LOC: LBN 17:09
PROVIDERS: PCP Family Medicine; Visit Provider Nurse Practitioner Gerontology
DX: R31.9 Hematuria, unspecified (principal)
CPT/HCPCS: 81003; 81015; 87086

== ENCOUNTER 2024-09-25 16:47 | Outpatient (REF) | payer MEDICAID, SELFPAY ==
[2024-09-25 16:42] LABS: Bilirubin Negative (Negative); Blood Trace-intact (Negative); Clarity Clear (Clear); Glucose Negative (Negative); Ketones Negative (Negative); Leukocyte Esterase Trace (Negative); Nitrite Positive (Negative); Specific Gravity >= 1.030 (1.005-1.025)
[2024-09-25 16:50] LABS: Bacteria Many HPF (Negative); C & S Indicated? C&S Done As Ordered; Crystals Negative HPF (Negative); Epithelial Cells Moderate HPF (Negative); Mucus Moderate (Negative); WBC >50 HPF (0-5)
== END 2024-09-25 16:48 | disposition home or self-care (01) ==
LOC: LBN 16:47
PROVIDERS: PCP Family Medicine; Visit Provider Nurse Practitioner Gerontology
DX: Z87.440 Personal history of urinary (tract) infections (principal)
CPT/HCPCS: 87077; 81003; 81015; 87086; 87186